=== PATIENT | male | born 1960 | race Caucasian/White ===

== ENCOUNTER → 2017-03-17 | Outpatient (CLI) | payer MEDICARE ==
[~2017-03-17] MED LIST: ACET325 PO; ARIP15 PO; ARIP30 PO; ASPI81CH PO; Ambien5 MG PO; CHOL10002; CLON1 PO; CLON2 PO; DIAZ10 PO; DOXE25 PO; Hair, Skin & N1 EACH PO; LAMO100 PO; LIDO700A20 TOP; LISI20 PO; LITH300C PO; Levitra20 MG PO; METAMUCIL660 GM PO; MIRT30 PO; NAPR220 PO; OLAN10 PO; QUET200 PO; QUET300; RISP1 PO; SAPHRIS5 MG SL; TAMS.4ER PO; TESTOSTERONE; TESTOSTERONE5 G1 TOP; Zyprexa Zydis15 MG PO
== END ==
LOC: LAB 13:17
DX: R32 Unspecified urinary incontinence (principal)
CPT/HCPCS: 87086

== ENCOUNTER 2017-08-11 13:57 | Emergency (ER) | END 2017-08-11 15:23 | disposition home or self-care (01) ==

== ENCOUNTER 2017-08-12 06:05 | Emergency (ER) | payer MEDICARE ==
[~2017-08-12] VITALS: Ht 205.7 cm; Wt 104.3 kg
[2017-08-12] MEDS ORDERED: ARIP30 PO (06:36)
[2017-08-12] MEDS ORDERED: LITH300C PO (06:36)
[2017-08-12] MEDS ORDERED: CLON2 PO (06:36)
[2017-08-12] MEDS ORDERED: LISI20 PO (06:37)
[2017-08-12] MEDS ORDERED: TAMS.4ER PO (06:37)
[2017-08-12] MEDS ORDERED: Hair, Skin & N1 EACH PO (06:37)
[2017-08-12] MEDS ORDERED: CHOL10002 (06:37)
[2017-08-12] MEDS ORDERED: MIRT30 PO (06:38)
[2017-08-12] MEDS ORDERED: NAPR220 PO (06:38)
[2017-08-12] MEDS ORDERED: ASPI81CH PO (06:38)
[2017-08-12] MEDS ORDERED: TESTOSTERONE (06:39)
[2017-08-12] MEDS ORDERED: Levitra20 MG PO (06:39)
[2017-08-12] MEDS ORDERED: RISP1 PO (06:39)
[2017-08-12] MEDS ORDERED: Ambien5 MG PO (07:29)
== END 2017-08-12 07:38 | disposition home or self-care (01) ==
LOC: ER 06:05
DX: G47.00 Insomnia, unspecified (principal); F31.9 Bipolar disorder, unspecified; F17.210 Nicotine dependence, cigarettes, uncomplicated; Z79.899 Other long term (current) drug therapy; Z79.82 Long term (current) use of aspirin; Z79.2 Long term (current) use of antibiotics
CPT/HCPCS: 99283

== ENCOUNTER 2017-08-12 21:52 | Emergency (ER) | payer MEDICARE ==
[~2017-08-12] VITALS: Ht 182.9 cm; Wt 104.3 kg
[~2017-08-12 21:52] MED LIST changes: -ACET325 PO; -ARIP15 PO; -CLON1 PO; -DIAZ10 PO; -DOXE25 PO; -LAMO100 PO; -LIDO700A20 TOP; -METAMUCIL660 GM PO; -OLAN10 PO; -QUET200 PO; -QUET300; -SAPHRIS5 MG SL; -TESTOSTERONE5 G1 TOP; -Zyprexa Zydis15 MG PO
== END 2017-08-12 23:54 | disposition left against medical advice (07) ==
LOC: ER 21:52
DX: Z53.21 Procedure and treatment not carried out due to patient leaving prior to being seen by health care provider (principal)

== ENCOUNTER 2017-08-26 04:52 | Observation (INO) | payer MEDICARE ==
[~2017-08-26] VITALS: Ht 182.9 cm; Wt 100.7 kg
[2017-08-26] MEDS ORDERED: SAPHRIS5 MG SL (05:05)
[2017-08-26] MEDS ORDERED: DIAZ10 PO (05:05)
== END 2017-08-26 06:35 | disposition home or self-care (01) ==
LOC: ER 04:52 → EOR 04:53
DX: R45.850 Homicidal ideations (principal); F41.9 Anxiety disorder, unspecified; F17.200 Nicotine dependence, unspecified, uncomplicated; Z79.899 Other long term (current) drug therapy; Z79.82 Long term (current) use of aspirin
CPT/HCPCS: 99285; G0378

== ENCOUNTER 2017-08-26 07:43 | Emergency (ER) | payer MEDICARE ==
[~2017-08-26] VITALS: Ht 182.9 cm; Wt 99.8 kg
[~2017-08-26 07:43] MED LIST changes: +DIAZ10 PO; +SAPHRIS5 MG SL
== END 2017-08-26 08:34 | disposition home or self-care (01) ==
LOC: ER 07:43
DX: F31.9 Bipolar disorder, unspecified (principal); F41.9 Anxiety disorder, unspecified; F17.210 Nicotine dependence, cigarettes, uncomplicated; Z79.899 Other long term (current) drug therapy; Z79.82 Long term (current) use of aspirin
CPT/HCPCS: 99283

== ENCOUNTER 2017-09-13 22:07 | Emergency (ER) | payer MEDICARE ==
[~2017-09-13] VITALS: Ht 182.9 cm; Wt 95.7 kg
== END 2017-09-14 00:01 | disposition home or self-care (01) ==
LOC: ER 22:07
DX: Z63.0 Problems in relationship with spouse or partner (principal); F31.9 Bipolar disorder, unspecified; Z79.899 Other long term (current) drug therapy; F17.200 Nicotine dependence, unspecified, uncomplicated; Z79.82 Long term (current) use of aspirin
CPT/HCPCS: 99283

== ENCOUNTER 2017-12-18 11:41 | Emergency (ER) | payer MEDICARE ==
[~2017-12-18] VITALS: Ht 188 cm; Wt 99.8 kg
[2017-12-18] MEDS ORDERED: LAMO100 PO (11:56)
[2017-12-18] MEDS ORDERED: ARIP15 PO (11:56)
[2017-12-18] MEDS ORDERED: QUET200 PO (11:57)
[2017-12-18 12:01] LABS: BASOPHILS ABSOLUTE AUTO 0.04 K/mm3 (0.00-0.23); BASOPHILS PERCENT AUTO 1 % (0-2); EOSINOPHILS ABSOLUTE AUTO 0.28 K/mm3 (0.00-0.68); EOSINOPHILS PERCENT AUTO 3 % (0-6); Hematocrit 43.5 % (37.0-53.0); Hemoglobin 14.4 g/dL (13.5-17.5); IMMATURE GRAN ABSOLUTE AUTO 0.06 K/mm3 (0.00-0.10); IMMATURE GRAN PERCENT AUTO 1 % (0-1); LYMPHOCYTES ABSOLUTE AUTO 1.63 K/mm3 (0.84-5.20); LYMPHOCYTES PERCENT AUTO 20 % (21-46); MONOCYTES ABSOLUTE AUTO 0.81 K/mm3 (0.16-1.47); MONOCYTES PERCENT AUTO 10 % (4-13); Mean Corpuscular HGB 30.4 pg (26.0-34.0); Mean Corpuscular HGB Conc 33.1 g/dL (31.5-36.5); Mean Corpuscular Volume 92 fL (80-100); Mean Platelet Volume 9.5 fL (9.1-12.4); NEUTROPHILS ABSOLUTE AUTO 5.48 K/mm3 (1.96-9.15); NEUTROPHILS PERCENT AUTO 66 % (41-73); Platelet Count 297 K/mm3 (150-400); RDW Coefficient Variation 12.8 % (11.7-14.2); RDW Standard Deviation 43.4 fL (35.1-46.3); Red Blood Cell Count 4.74 M/mm3 (4.30-5.90)
[2017-12-18 12:25] LABS: Alanine Aminotransfer (ALT/SGP 35 U/L (12-78); Albumin, Blood 4.1 g/dL (3.4-5.0); Albumin/Globulin Ratio 1.2 (0.8-1.8); Alk Phos 78 U/L (50-136); Anion Gap 6 mmol/L (6-16); Aspartate Aminotrans (AST/SGOT 31 U/L (12-37); Bilirubin, Total 0.2 mg/dL (0.1-1.0); Blood Urea Nitrogen 22 mg/dL (8-24); Bun/Creatinine Ratio 22.1 (12.0-20.0); CO2, Blood 26 mmol/L (21-32); Calcium, Blood 9.7 mg/dL (8.5-10.1); Chloride, Blood 102 mmol/L (98-108); Globulin, Blood 3.4 g/dL (2.2-4.0); Glomerular Filtration Rate >60 (60-); Glucose, Blood 100 mg/dL (70-99); Potassium, Blood 4.7 mmol/L (3.5-5.5); Sodium, Blood 134 mmol/L (136-145); Total Protein, Blood 7.5 g/dL (6.4-8.2); Troponin I <0.015 ng/mL (0.000-0.040)
== END 2017-12-18 13:00 | disposition home or self-care (01) ==
LOC: ER 11:41
PROVIDERS: Emergency Medicine
DX: R07.89 Other chest pain (principal); T78.8XXA Other adverse effects, not elsewhere classified, initial encounter; Z79.899 Other long term (current) drug therapy; Z79.82 Long term (current) use of aspirin; F31.9 Bipolar disorder, unspecified
CPT/HCPCS: 71046; 80053; 84484; 85025; 93005; 93010

== ENCOUNTER 2018-03-08 19:39 | Observation (INO) | payer MEDICARE ==
[~2018-03-08] VITALS: Ht 188 cm; Wt 100.9 kg
[~2018-03-08 19:39] MED LIST changes: +ACET325 PO; +ARIP15 PO; +CLON1 PO; +DOXE25 PO; +LAMO100 PO; +LIDO700A20 TOP; +METAMUCIL660 GM PO; +OLAN10 PO; +QUET200 PO; +QUET300; +TESTOSTERONE5 G1 TOP; +Zyprexa Zydis15 MG PO
[2018-03-08 20:17] LABS: BASOPHILS ABSOLUTE AUTO 0.03 K/mm3 (0.00-0.23); BASOPHILS PERCENT AUTO 0 % (0-2); EOSINOPHILS ABSOLUTE AUTO 0.43 K/mm3 (0.00-0.68); EOSINOPHILS PERCENT AUTO 5 % (0-6); Hematocrit 37.3 % (37.0-53.0); Hemoglobin 11.4 g/dL (13.5-17.5); IMMATURE GRAN ABSOLUTE AUTO 0.05 K/mm3 (0.00-0.10); IMMATURE GRAN PERCENT AUTO 1 % (0-1); LYMPHOCYTES ABSOLUTE AUTO 2.26 K/mm3 (0.84-5.20); LYMPHOCYTES PERCENT AUTO 25 % (21-46); MONOCYTES ABSOLUTE AUTO 0.67 K/mm3 (0.16-1.47); MONOCYTES PERCENT AUTO 7 % (4-13); Mean Corpuscular HGB 28.3 pg (26.0-34.0); Mean Corpuscular HGB Conc 30.6 g/dL (31.5-36.5); Mean Corpuscular Volume 93 fL (80-100); Mean Platelet Volume 10.2 fL (9.1-12.4); NEUTROPHILS ABSOLUTE AUTO 5.75 K/mm3 (1.96-9.15); NEUTROPHILS PERCENT AUTO 63 % (41-73); Platelet Count 312 K/mm3 (150-400); RDW Coefficient Variation 13.6 % (11.7-14.2); RDW Standard Deviation 46.4 fL (35.1-46.3); Red Blood Cell Count 4.03 M/mm3 (4.30-5.90); White Blood Cell Count 9.19 K/mm3 (4.00-11.30)
[2018-03-08 20:34] LABS: Acetaminophen, Random <2.0 ug/mL (10.0-30.0); Alanine Aminotransfer (ALT/SGP 31 U/L (12-78); Albumin, Blood 3.5 g/dL (3.4-5.0); Albumin/Globulin Ratio 1.1 (0.8-1.8); Alk Phos 79 U/L (50-136); Anion Gap 7 mmol/L (6-16); Aspartate Aminotrans (AST/SGOT 20 U/L (12-37); Bilirubin, Total 0.1 mg/dL (0.1-1.0); Blood Urea Nitrogen 24 mg/dL (8-24); Bun/Creatinine Ratio 27.8 (12.0-20.0); CO2, Blood 26 mmol/L (21-32); Calcium, Blood 9.3 mg/dL (8.5-10.1); Chloride, Blood 107 mmol/L (98-108); Creatinine, Blood 0.86 mg/dL (0.60-1.20); Ethanol (Alcohol), Blood, Med 5 mg/dL; Globulin, Blood 3.3 g/dL (2.2-4.0); Glomerular Filtration Rate >60 (60-); Glucose, Blood 100 mg/dL (70-99); Potassium, Blood 4.1 mmol/L (3.5-5.5); Salicylate 2.3 mg/dL (2.8-20.0); Sodium, Blood 140 mmol/L (136-145); Total Protein, Blood 6.8 g/dL (6.4-8.2)
[2018-03-08 20:38] LABS: Thyroid Stimulating Hormone 0.489 uIU/mL (0.360-4.800)
[2018-03-08 21:43] LABS: Source, Urine Clean Catch
[2018-03-08 21:46] LABS: Appearance, Urine Clear (Clear); Bilirubin, Urine Neg (Neg); Blood, Urine Neg (Neg); Color, Urine Yellow (P-Yellow); Glucose Qualitative, Urine Neg (Neg); Ketones, Urine Neg (Neg); Leukocyte Esterase, Urine Neg (Neg); Nitrite, Urine Neg (Neg); Protein, Urine Neg (Neg); Urobilinogen, Urine NORM (Normal)
[2018-03-08 22:00] LABS: U Amphetamine Screen Not Detected; U Barbituate Screen Not Detected; U Benzodiazapine Screen Not Detected; U Buprenorphine Screen Not Detected; U Cannabinoids Screen Not Detected; U Cocaine Screen Not Detected; U Methadone Screen Not Detected; U Methamphetamine Screen Not Detected; U Opiates Screen Not Detected; U Oxycodone Screen Not Detected; U Phencyclidine Screen Not Detected
[2018-03-08 22:01] LABS: U Propoxyphene Screen Not Detected
[2018-03-09 03:43] LABS: Hematocrit 36.1 % (37.0-53.0); Hemoglobin 11.2 g/dL (13.5-17.5); Mean Corpuscular HGB 28.9 pg (26.0-34.0); Mean Corpuscular Volume 93 fL (80-100); Mean Platelet Volume 9.7 fL (9.1-12.4); Platelet Count 306 K/mm3 (150-400); RDW Coefficient Variation 13.8 % (11.7-14.2); Red Blood Cell Count 3.87 M/mm3 (4.30-5.90); White Blood Cell Count 6.99 K/mm3 (4.00-11.30)
[2018-03-09 04:02] LABS: Alanine Aminotransfer (ALT/SGP 28 U/L (12-78); Albumin, Blood 2.9 g/dL (3.4-5.0); Alk Phos 68 U/L (50-136); Anion Gap 6 mmol/L (6-16); Aspartate Aminotrans (AST/SGOT 19 U/L (12-37); Bilirubin, Total 0.3 mg/dL (0.1-1.0); Blood Urea Nitrogen 17 mg/dL (8-24); Bun/Creatinine Ratio 24.7 (12.0-20.0); CO2, Blood 24 mmol/L (21-32); Chloride, Blood 114 mmol/L (98-108); Creatinine, Blood 0.69 mg/dL (0.60-1.20); Glomerular Filtration Rate >60 (60-); Glucose, Blood 93 mg/dL (70-99); Sodium, Blood 144 mmol/L (136-145); Total Protein, Blood 5.9 g/dL (6.4-8.2)
[2018-03-09 11:37] LABS: Lithium 0.44 mmol/L (0.60-1.20)
== END 2018-03-10 22:50 | disposition home or self-care (01) ==
LOC: ER 19:39 → ERHOLD 19:40 → ICUW 21:30 → ER 21:30 → ERHOLD 22:53 → ICUW 22:53 → ERHOLD 03-10 13:23
PROVIDERS: Emergency Medicine; Nurse Practitioner Acute Care; Nurse Practitioner Psychiatric/Mental Health
DX: T42.4X2A Poisoning by benzodiazepines, intentional self-harm, initial encounter (principal); G92 Toxic encephalopathy; F31.9 Bipolar disorder, unspecified; D64.9 Anemia, unspecified; M54.9 Dorsalgia, unspecified; G89.29 Other chronic pain; I10 Essential (primary) hypertension; K21.9 Gastro-esophageal reflux disease without esophagitis; F17.210 Nicotine dependence, cigarettes, uncomplicated; Z79.899 Other long term (current) drug therapy
CPT/HCPCS: 36415; 80053; 80178; 81003; 84443; 85025; 85027; 93005; 93010; G0480; J1650; J2310; J7030

== ENCOUNTER 2018-03-22 02:58 | Emergency (ER) | payer MEDICARE ==
[2018-03-23] MEDS ORDERED: TRAZ50 PO (00:25)
== END 2018-03-22 04:10 | disposition left against medical advice (07) ==
LOC: ER 02:58
DX: Z53.21 Procedure and treatment not carried out due to patient leaving prior to being seen by health care provider (principal)

== ENCOUNTER 2018-03-22 16:41 | Emergency (ER) | payer MEDICARE ==
[~2018-03-22] VITALS: Ht 182.9 cm; Wt 99.8 kg
[2018-03-23] MEDS ORDERED: TRAZ50 PO (00:25)
== END 2018-03-22 20:23 | disposition left against medical advice (07) ==
LOC: ER 16:41
DX: Z53.21 Procedure and treatment not carried out due to patient leaving prior to being seen by health care provider (principal)

== ENCOUNTER 2018-03-22 23:43 | Emergency (ER) | payer MEDICARE ==
[~2018-03-22] VITALS: Ht 182.9 cm; Wt 99.8 kg
[2018-03-23] MEDS ORDERED: TRAZ50 PO (00:25)
== END 2018-03-23 02:23 | disposition left against medical advice (07) ==
LOC: ER 23:43
DX: Z53.21 Procedure and treatment not carried out due to patient leaving prior to being seen by health care provider (principal)

== ENCOUNTER 2018-03-23 02:53 | Emergency (ER) | payer MEDICARE ==
[~2018-03-23] VITALS: Ht 182.9 cm; Wt 99.8 kg
[~2018-03-23 02:53] MED LIST changes: +TRAZ50 PO
== END 2018-03-23 04:38 | disposition home or self-care (01) ==
LOC: ER 02:53
DX: G47.00 Insomnia, unspecified (principal); Z79.899 Other long term (current) drug therapy; F31.9 Bipolar disorder, unspecified; I10 Essential (primary) hypertension; D64.9 Anemia, unspecified; F17.210 Nicotine dependence, cigarettes, uncomplicated
CPT/HCPCS: 99283

== ENCOUNTER 2018-04-30 14:37 | Emergency (ER) | payer SELFPAY ==
[~2018-04-30] VITALS: Ht 185.4 cm; Wt 97.5 kg
[2018-04-30] MEDS ORDERED: LITH300C PO (15:58)
[2018-04-30] MEDS ORDERED: Cyclobenzaprine5 MG PO (15:58)
[2018-04-30] MEDS ORDERED: IBUP800 PO (16:05)
[2018-04-30 16:35] LABS: Calcium, Ionized (POC) 1.18 mmol/L (1.10-1.46); Chloride (POC) 106 mmol/L (98-108); Creatinine (POC) 0.6 mg/dL (0.8-1.3); Glucose (ISTAT POC) 113 mg/dL (70-99); Hemoglobin (POC) 12.9 g/dL (13.5-17.5); Potassium (POC) 3.9 mmol/L (3.5-5.5); Sodium (POC) 139 mmol/L (135-148); Total CO2 (POC) 22 mmol/L (21-32)
== END 2018-04-30 16:10 | disposition home or self-care (01) ==
LOC: ER 14:37
PROVIDERS: Physician Assistant
DX: S16.1XXA Strain of muscle, fascia and tendon at neck level, initial encounter (principal); Z76.0 Encounter for issue of repeat prescription; X58.XXXA Exposure to other specified factors, initial encounter; Z79.899 Other long term (current) drug therapy; F31.9 Bipolar disorder, unspecified; I10 Essential (primary) hypertension; D64.9 Anemia, unspecified; F17.210 Nicotine dependence, cigarettes, uncomplicated
CPT/HCPCS: 36415; 73010; 80047; 85014; 99283-25

== ENCOUNTER 2018-05-03 13:11 | Emergency (ER) | payer MEDICARE ==
[~2018-05-03 13:11] MED LIST changes: +Cyclobenzaprine5 MG PO; +IBUP800 PO
== END 2018-05-03 14:36 | disposition left against medical advice (07) ==
LOC: ER 13:11
DX: Z53.21 Procedure and treatment not carried out due to patient leaving prior to being seen by health care provider (principal); M54.9 Dorsalgia, unspecified

== ENCOUNTER 2018-05-14 12:05 | Observation (INO) | payer MEDICARE ==
[~2018-05-14] VITALS: Ht 182.9 cm; Wt 99.8 kg
[2018-05-14 13:41] LABS: BASOPHILS ABSOLUTE AUTO 0.03 K/mm3 (0.00-0.23); BASOPHILS PERCENT AUTO 0 % (0-2); EOSINOPHILS ABSOLUTE AUTO 0.11 K/mm3 (0.00-0.68); EOSINOPHILS PERCENT AUTO 1 % (0-6); Hematocrit 41.1 % (37.0-53.0); Hemoglobin 12.6 g/dL (13.5-17.5); IMMATURE GRAN ABSOLUTE AUTO 0.05 K/mm3 (0.00-0.10); IMMATURE GRAN PERCENT AUTO 0 % (0-1); LYMPHOCYTES ABSOLUTE AUTO 1.41 K/mm3 (0.84-5.20); LYMPHOCYTES PERCENT AUTO 9 % (21-46); MONOCYTES ABSOLUTE AUTO 0.79 K/mm3 (0.16-1.47); MONOCYTES PERCENT AUTO 5 % (4-13); Mean Corpuscular HGB Conc 30.7 g/dL (31.5-36.5); Mean Corpuscular Volume 88 fL (80-100); Mean Platelet Volume 9.7 fL (9.1-12.4); NEUTROPHILS ABSOLUTE AUTO 13.29 K/mm3 (1.96-9.15); NEUTROPHILS PERCENT AUTO 85 % (41-73); Platelet Count 325 K/mm3 (150-400); RDW Standard Deviation 45.1 fL (35.1-46.3); Red Blood Cell Count 4.66 M/mm3 (4.30-5.90); White Blood Cell Count 15.68 K/mm3 (4.00-11.30)
[2018-05-14 14:17] LABS: Alanine Aminotransfer (ALT/SGP 23 U/L (12-78); Albumin, Blood 3.5 g/dL (3.4-5.0); Albumin/Globulin Ratio 0.9 (0.8-1.8); Alk Phos 103 U/L (50-136); Anion Gap 6 mmol/L (6-16); Aspartate Aminotrans (AST/SGOT 15 U/L (12-37); Bilirubin, Total 0.5 mg/dL (0.1-1.0); Blood Urea Nitrogen 14 mg/dL (8-24); Bun/Creatinine Ratio 20.9 (12.0-20.0); CO2, Blood 26 mmol/L (21-32); Calcium, Blood 9.4 mg/dL (8.5-10.1); Chloride, Blood 104 mmol/L (98-108); Creatinine, Blood 0.67 mg/dL (0.60-1.20); Ethanol (Alcohol), Blood, Med <3 mg/dL; Globulin, Blood 3.9 g/dL (2.2-4.0); Glomerular Filtration Rate >60 (60-); Glucose, Blood 92 mg/dL (70-99); Potassium, Blood 4.4 mmol/L (3.5-5.5); Salicylate 2.6 mg/dL (2.8-20.0); Sodium, Blood 136 mmol/L (136-145); Thyroxine (T4) 8.8 ug/dL (4.5-12.1); Total Protein, Blood 7.4 g/dL (6.4-8.2)
[2018-05-14 14:22] LABS: Thyroid Stimulating Hormone 0.329 uIU/mL (0.360-4.800)
[2018-05-14 14:27] LABS: Acetaminophen, Random <2.0 ug/mL (10.0-30.0)
[2018-05-14 19:16] LABS: Lithium <0.20 mmol/L (0.60-1.20)
[2018-05-15 10:47] LABS: U Amphetamine Screen Not Detected; U Barbituate Screen Not Detected; U Benzodiazapine Screen Not Detected; U Buprenorphine Screen Not Detected; U Cannabinoids Screen DETECTED; U Cocaine Screen Not Detected; U Methadone Screen Not Detected; U Methamphetamine Screen Not Detected; U Opiates Screen Not Detected; U Oxycodone Screen Not Detected; U Phencyclidine Screen Not Detected; U Propoxyphene Screen Not Detected
== END 2018-05-17 21:50 | disposition home or self-care (01) ==
LOC: ER 12:05 → EOR 12:06
PROVIDERS: Emergency Medicine; ADMIT Emergency Medicine
DX: F31.5 Bipolar disorder, current episode depressed, severe, with psychotic features (principal); F15.10 Other stimulant abuse, uncomplicated; F17.210 Nicotine dependence, cigarettes, uncomplicated; Z79.899 Other long term (current) drug therapy
CPT/HCPCS: 36415; 80053; 80178; 84436; 84443; 85025; 99285-25; G0378; G0480; Q3014

== ENCOUNTER 2018-07-21 19:20 | Observation (INO) | payer MEDICARE ==
[~2018-07-21] VITALS: Ht 182.9 cm; Wt 98.1 kg
[~2018-07-21 19:20] MED LIST changes: -TRAZ50 PO; +Trazodone HCl300 MG PO
[2018-07-21] MEDS ORDERED: CLON1 PO (19:37)
[2018-07-21] MEDS ORDERED: VITAMIN D250000 UNIT PO (21:14)
[2018-07-21] MEDS ORDERED: HYDPAM25 PO (21:15)
[2018-07-21] MEDS ORDERED: IBUP800 PO (21:16)
[2018-07-21] MEDS ORDERED: Lamictal25 MG PO (21:16)
[2018-07-21] MEDS ORDERED: LAMO100 PO (21:17)
[2018-07-21] MEDS ORDERED: OLANZAPINE15 MG PO (21:18)
[2018-07-21 22:43] LABS: Hematocrit 37.7 % (37.0-53.0); Hemoglobin 12.2 g/dL (13.5-17.5); White Blood Cell Count 10.76 K/mm3 (4.00-11.30)
[2018-07-21 22:44] LABS: BASOPHILS ABSOLUTE AUTO 0.02 K/mm3 (0.00-0.23); BASOPHILS PERCENT AUTO 0 % (0-2); EOSINOPHILS ABSOLUTE AUTO 0.09 K/mm3 (0.00-0.68); EOSINOPHILS PERCENT AUTO 1 % (0-6); IMMATURE GRAN ABSOLUTE AUTO 0.05 K/mm3 (0.00-0.10); IMMATURE GRAN PERCENT AUTO 1 % (0-1); LYMPHOCYTES PERCENT AUTO 12 % (21-46); MONOCYTES ABSOLUTE AUTO 0.85 K/mm3 (0.16-1.47); MONOCYTES PERCENT AUTO 8 % (4-13); Mean Corpuscular HGB 27.7 pg (26.0-34.0); Mean Corpuscular HGB Conc 32.4 g/dL (31.5-36.5); Mean Corpuscular Volume 86 fL (80-100); Mean Platelet Volume 9.8 fL (9.1-12.4); NEUTROPHILS ABSOLUTE AUTO 8.45 K/mm3 (1.96-9.15); NEUTROPHILS PERCENT AUTO 79 % (41-73); Platelet Count 369 K/mm3 (150-400); RDW Coefficient Variation 14.6 % (11.7-14.2)
[2018-07-21 23:34] LABS: Albumin, Blood 3.3 g/dL (3.4-5.0); Albumin/Globulin Ratio 0.9 (0.8-1.8); Alk Phos 101 U/L (50-136); Anion Gap 10 mmol/L (6-16); Aspartate Aminotrans (AST/SGOT 48 U/L (12-37); Bilirubin, Total 0.4 mg/dL (0.1-1.0); Blood Urea Nitrogen 19 mg/dL (8-24); Bun/Creatinine Ratio 23.5 (12.0-20.0); CO2, Blood 21 mmol/L (21-32); Calcium, Blood 8.7 mg/dL (8.5-10.1); Chloride, Blood 106 mmol/L (98-108); Creatinine, Blood 0.81 mg/dL (0.60-1.20); Globulin, Blood 3.7 g/dL (2.2-4.0); Glomerular Filtration Rate >60 (60-); Glucose, Blood 122 mg/dL (70-99); Potassium, Blood 3.6 mmol/L (3.5-5.5); Sodium, Blood 137 mmol/L (136-145)
[2018-07-21 23:35] LABS: Acetaminophen, Random <2.0 ug/mL (10.0-30.0); Alanine Aminotransfer (ALT/SGP 26 U/L (12-78); Ethanol (Alcohol), Blood, Med <3 mg/dL; Salicylate 3.2 mg/dL (2.8-20.0); Thyroid Stimulating Hormone 0.374 uIU/mL (0.360-4.800)
[2018-07-22 04:18] LABS: Hematocrit 37.2 % (37.0-53.0); Hemoglobin 11.9 g/dL (13.5-17.5); Mean Corpuscular HGB 27.5 pg (26.0-34.0); Mean Corpuscular Volume 86 fL (80-100); Mean Platelet Volume 9.7 fL (9.1-12.4); Platelet Count 332 K/mm3 (150-400); RDW Coefficient Variation 14.9 % (11.7-14.2); RDW Standard Deviation 46.7 fL (35.1-46.3); Red Blood Cell Count 4.33 M/mm3 (4.30-5.90); White Blood Cell Count 7.73 K/mm3 (4.00-11.30)
[2018-07-22 04:36] LABS: Alanine Aminotransfer (ALT/SGP 22 U/L (12-78); Albumin, Blood 3.1 g/dL (3.4-5.0); Albumin/Globulin Ratio 0.9 (0.8-1.8); Alk Phos 93 U/L (50-136); Anion Gap 6 mmol/L (6-16); Aspartate Aminotrans (AST/SGOT 35 U/L (12-37); Bilirubin, Total 0.5 mg/dL (0.1-1.0); Blood Urea Nitrogen 14 mg/dL (8-24); Bun/Creatinine Ratio 18.1 (12.0-20.0); CO2, Blood 24 mmol/L (21-32); Calcium, Blood 8.6 mg/dL (8.5-10.1); Chloride, Blood 110 mmol/L (98-108); Creatinine, Blood 0.77 mg/dL (0.60-1.20); Globulin, Blood 3.4 g/dL (2.2-4.0); Glomerular Filtration Rate >60 (60-); Glucose, Blood 93 mg/dL (70-99); Potassium, Blood 3.6 mmol/L (3.5-5.5); Sodium, Blood 140 mmol/L (136-145); Total Protein, Blood 6.5 g/dL (6.4-8.2)
[2018-07-22 05:55] LABS: Source, Urine Clean Catch
[2018-07-22 05:57] LABS: Bilirubin, Urine Neg (Neg); Blood, Urine Neg (Neg); Glucose Qualitative, Urine Neg (Neg); Ketones, Urine 3+ (Neg); Leukocyte Esterase, Urine Neg (Neg); Nitrite, Urine Neg (Neg); Protein, Urine 2+ (Neg); Specific Gravity, Urine 1.025 (1.003-1.022); Urobilinogen, Urine NORM (Normal)
--- NOTE | 2018-07-22 06:02 | NUR ---
SHIFT SUMMARY. PT SLEPT VERY HARD FOR APROX 3 HOURS AFTER HE WAS ADMITTED. PT WOKE UP VERY ALERT AND ORIENTED. PT WAS ABLE TO STATE HE WAS IN THE HOSPTIAL IN [place]. PT'S SPEECH IS VERY CLEAR. PT WAS ABLE TO REMEMBER HIS SISTER'S PHONE NUMBER FROM [place]. PT DOES NOT REMEMBER COMING IN OR WHAT BROUGHT HIM HERE. PT HAS BEEN IN NSR ALL SHIFT. NO CARDIAC EVENTS, PT'S VS HAVE BEEN STABLE. PT DENIES. ANY CHEST PAIN/PRESSURE, N/V OR SOB. PT DOES C/O OF SEVERE NECK PAIN DUE TO "SLEEPING ON THE STREETS." THIS RN SPOKE W/PT'S SISTER, PT'S SISTER WANTS TO COME TO [place] FROM [place] TO HELP HER BROTHER BUT IS AFRAID THAT HE WILL BE D/C'D BY THE TIME SHE GETS HERE AND SHE WILL NOT BE ABLE TO FIND HIM DUE TO HIS HOMELESS STATUS AND MENTAL HEALTH ISSUES. A SS CONSULT WILL BE PLACED. CALL LIGHT IN REACH, BED IS LOCKED AND LOW W/BED ALARM ON, WILL CONTINUE TO MONITOR UNTIL REPORT IS GIVEN TO ONCOMING RN.
[2018-07-22 06:10] LABS: U Amphetamine Screen Not Detected; U Barbituate Screen Not Detected; U Benzodiazapine Screen Not Detected; U Buprenorphine Screen Not Detected; U Cannabinoids Screen DETECTED; U Cocaine Screen Not Detected; U Methadone Screen Not Detected; U Methamphetamine Screen Not Detected; U Opiates Screen Not Detected; U Oxycodone Screen Not Detected; U Phencyclidine Screen Not Detected; U Propoxyphene Screen Not Detected
[2018-07-22 06:21] LABS: Appearance, Urine Clear (Clear); Bacteria Rare /hpf; Color, Urine Yellow (P-Yellow); Mucus Light (0-Heavy); Red Blood Cells, Urine Not Seen /hpf (0-2); Squamous Epithelial Cells Rare /hpf (Few); White Blood Cells, Urine Rare /hpf (0-5)
[2018-07-22 06:22] LABS: Amorphous Light (0-Heavy)
--- NOTE | 2018-07-22 08:22 | NUR ---
ASSUMED CARE OF PT AT APPROXIMATELY 0745. PT ALERT AND ORIENTED. VS STABLE. PT DENIES ANY PAIN. PT REQUESTING AMA FORM AND WANTS TO LEAVE. PT ENCOURAGED TO STAY AND INFORMED OF RISKS OF LEAVING. DR. DE LEON NOTIFIED. ALL PT BELONGINGS RETURNED TO PT. PT SIGNED AMA FORM. CHARGE NURSE NOTIFIED.
[2018-07-23] MEDS ORDERED: OLAN10 PO (17:55)
== END 2018-07-22 08:21 | disposition left against medical advice (07) ==
LOC: ER 19:20 → PCU 19:21
PROVIDERS: Emergency Medicine; ADMIT Internal Medicine
DX: R55 Syncope and collapse (principal); G93.40 Encephalopathy, unspecified; E86.0 Dehydration; I10 Essential (primary) hypertension; F31.9 Bipolar disorder, unspecified; D64.9 Anemia, unspecified; K21.9 Gastro-esophageal reflux disease without esophagitis; F17.200 Nicotine dependence, unspecified, uncomplicated; Z79.899 Other long term (current) drug therapy
CPT/HCPCS: 36415; 70450; 71046; 80053; 81001; 83735; 85027; 93005; 93010; 96361; 96374; 96375; 99285-25; J1650; J2310; J7030

== ENCOUNTER 2018-07-23 14:59 | Emergency (ER) | payer MEDICARE ==
[~2018-07-23] VITALS: Ht 182.9 cm; Wt 102.1 kg
[~2018-07-23 14:59] MED LIST changes: +HYDPAM25 PO; +OLANZAPINE15 MG PO; -Trazodone HCl300 MG PO; +VITAMIN D250000 UNIT PO
[2018-07-23 15:44] LABS: BASOPHILS ABSOLUTE AUTO 0.02 K/mm3 (0.00-0.23); BASOPHILS PERCENT AUTO 0 % (0-2); EOSINOPHILS ABSOLUTE AUTO 0.16 K/mm3 (0.00-0.68); EOSINOPHILS PERCENT AUTO 3 % (0-6); Hematocrit 35.2 % (37.0-53.0); Hemoglobin 11.1 g/dL (13.5-17.5); IMMATURE GRAN ABSOLUTE AUTO 0.02 K/mm3 (0.00-0.10); IMMATURE GRAN PERCENT AUTO 0 % (0-1); LYMPHOCYTES ABSOLUTE AUTO 1.57 K/mm3 (0.84-5.20); LYMPHOCYTES PERCENT AUTO 30 % (21-46); MONOCYTES ABSOLUTE AUTO 0.57 K/mm3 (0.16-1.47); MONOCYTES PERCENT AUTO 11 % (4-13); Mean Corpuscular HGB 27.3 pg (26.0-34.0); Mean Corpuscular HGB Conc 31.5 g/dL (31.5-36.5); Mean Corpuscular Volume 87 fL (80-100); Mean Platelet Volume 9.4 fL (9.1-12.4); NEUTROPHILS ABSOLUTE AUTO 2.95 K/mm3 (1.96-9.15); NEUTROPHILS PERCENT AUTO 56 % (41-73); Platelet Count 328 K/mm3 (150-400); RDW Coefficient Variation 14.8 % (11.7-14.2); RDW Standard Deviation 47.5 fL (35.1-46.3); Red Blood Cell Count 4.06 M/mm3 (4.30-5.90); White Blood Cell Count 5.29 K/mm3 (4.00-11.30)
[2018-07-23 16:03] LABS: Alanine Aminotransfer (ALT/SGP 25 U/L (12-78); Albumin, Blood 3.2 g/dL (3.4-5.0); Albumin/Globulin Ratio 0.9 (0.8-1.8); Alk Phos 92 U/L (50-136); Anion Gap 6 mmol/L (6-16); Aspartate Aminotrans (AST/SGOT 31 U/L (12-37); Bilirubin, Total 0.2 mg/dL (0.1-1.0); Blood Urea Nitrogen 12 mg/dL (8-24); Bun/Creatinine Ratio 18.1 (12.0-20.0); CO2, Blood 26 mmol/L (21-32); Calcium, Blood 8.8 mg/dL (8.5-10.1); Chloride, Blood 109 mmol/L (98-108); Creatinine, Blood 0.66 mg/dL (0.60-1.20); Globulin, Blood 3.6 g/dL (2.2-4.0); Glomerular Filtration Rate >60 (60-); Glucose, Blood 105 mg/dL (70-99); Potassium, Blood 3.8 mmol/L (3.5-5.5); Sodium, Blood 141 mmol/L (136-145); Total Protein, Blood 6.8 g/dL (6.4-8.2)
[2018-07-23 16:41] LABS: Source, Urine Clean Catch
[2018-07-23 16:47] LABS: Bilirubin, Urine Neg (Neg); Blood, Urine Neg (Neg); Glucose Qualitative, Urine Neg (Neg); Ketones, Urine Neg (Neg); Leukocyte Esterase, Urine 1+ (Neg); Nitrite, Urine Neg (Neg); Protein, Urine Neg (Neg); Specific Gravity, Urine 1.015 (1.003-1.022); Urobilinogen, Urine 1+ (Normal)
[2018-07-23 16:54] LABS: Appearance, Urine Clear (Clear); Color, Urine Yellow (P-Yellow)
[2018-07-23 16:55] LABS: Red Blood Cells, Urine 0-2 /hpf (0-2)
[2018-07-23 16:56] LABS: Bacteria Few /hpf; Squamous Epithelial Cells Not Seen /hpf (Few)
[2018-07-23] MEDS ORDERED: OLANZAPINE15 MG PO (17:55)
[2018-07-23 19:41] LABS: U Amphetamine Screen Not Detected; U Barbituate Screen Not Detected; U Benzodiazapine Screen Not Detected; U Buprenorphine Screen Not Detected; U Cannabinoids Screen Not Detected; U Cocaine Screen Not Detected; U Methadone Screen Not Detected; U Methamphetamine Screen Not Detected; U Opiates Screen Not Detected; U Oxycodone Screen Not Detected; U Phencyclidine Screen Not Detected; U Propoxyphene Screen Not Detected
== END 2018-07-23 20:54 | disposition left against medical advice (07) ==
LOC: ER 14:59
PROVIDERS: Emergency Medicine; Physician Assistant
DX: R55 Syncope and collapse (principal); F31.9 Bipolar disorder, unspecified; M54.9 Dorsalgia, unspecified; G89.29 Other chronic pain; F17.210 Nicotine dependence, cigarettes, uncomplicated; Z79.899 Other long term (current) drug therapy
CPT/HCPCS: 36415; 80053; 81001; 84484; 85025; 87086; 93005; 93010; 99284-25; G0480

== ENCOUNTER 2018-07-24 08:24 | Emergency (ER) | payer MEDICARE ==
[~2018-07-24] VITALS: Ht 182.9 cm; Wt 99.8 kg
== END 2018-07-24 09:00 | disposition left against medical advice (07) ==
LOC: ER 08:24
DX: Z53.21 Procedure and treatment not carried out due to patient leaving prior to being seen by health care provider (principal); R42 Dizziness and giddiness

== ENCOUNTER 2018-07-24 10:21 | Emergency (ER) | payer MEDICARE | END 2018-07-24 11:40 | disposition left against medical advice (07) | LOC: ER 10:21 | DX: Z53.21 Procedure and treatment not carried out due to patient leaving prior to being seen by health care provider (principal) ==

== ENCOUNTER 2018-07-24 23:18 | Emergency (ER) | payer MEDICARE ==
[~2018-07-24] VITALS: Ht 182.9 cm; Wt 99.8 kg
[2018-07-26] MEDS ORDERED: Prinivil10 MG PO (14:10)
[2018-07-26] MEDS ORDERED: PROAIR RESPICL90 MCG INH (14:11)
[2018-07-26] MEDS ORDERED: Lamotrigine25 MG PO (14:13)
[2018-07-26] MEDS ORDERED: Trazodone HCl300 MG PO (14:31)
== END 2018-07-25 03:05 | disposition home or self-care (01) ==
LOC: ER 23:18
DX: R55 Syncope and collapse (principal); F31.9 Bipolar disorder, unspecified; I10 Essential (primary) hypertension; D64.9 Anemia, unspecified; F17.210 Nicotine dependence, cigarettes, uncomplicated; Z79.899 Other long term (current) drug therapy
CPT/HCPCS: 99284

== ENCOUNTER 2018-07-26 08:57 | Emergency (ER) | payer MEDICARE ==
[~2018-07-26] VITALS: Ht 182.9 cm; Wt 99.8 kg
[2018-07-26 09:52] LABS: BASOPHILS ABSOLUTE AUTO 0.03 K/mm3 (0.00-0.23); BASOPHILS PERCENT AUTO 1 % (0-2); EOSINOPHILS PERCENT AUTO 3 % (0-6); Hematocrit 40.6 % (37.0-53.0); Hemoglobin 12.6 g/dL (13.5-17.5); IMMATURE GRAN ABSOLUTE AUTO 0.04 K/mm3 (0.00-0.10); IMMATURE GRAN PERCENT AUTO 1 % (0-1); LYMPHOCYTES ABSOLUTE AUTO 1.64 K/mm3 (0.84-5.20); LYMPHOCYTES PERCENT AUTO 25 % (21-46); MONOCYTES ABSOLUTE AUTO 0.51 K/mm3 (0.16-1.47); MONOCYTES PERCENT AUTO 8 % (4-13); Mean Corpuscular HGB 27.2 pg (26.0-34.0); Mean Corpuscular Volume 88 fL (80-100); Mean Platelet Volume 9.5 fL (9.1-12.4); NEUTROPHILS PERCENT AUTO 63 % (41-73); Platelet Count 346 K/mm3 (150-400); RDW Coefficient Variation 14.7 % (11.7-14.2); RDW Standard Deviation 47.3 fL (35.1-46.3); Red Blood Cell Count 4.64 M/mm3 (4.30-5.90); White Blood Cell Count 6.52 K/mm3 (4.00-11.30)
[2018-07-26 10:21] LABS: Acetaminophen, Random <2.0 ug/mL (10.0-30.0); Alanine Aminotransfer (ALT/SGP 36 U/L (12-78); Albumin, Blood 3.4 g/dL (3.4-5.0); Albumin/Globulin Ratio 0.9 (0.8-1.8); Alk Phos 91 U/L (50-136); Anion Gap 9 mmol/L (6-16); Aspartate Aminotrans (AST/SGOT 25 U/L (12-37); Bilirubin, Total 0.2 mg/dL (0.1-1.0); Blood Urea Nitrogen 12 mg/dL (8-24); Bun/Creatinine Ratio 17.2 (12.0-20.0); CO2, Blood 25 mmol/L (21-32); Calcium, Blood 8.6 mg/dL (8.5-10.1); Chloride, Blood 107 mmol/L (98-108); Ethanol (Alcohol), Blood, Med <3 mg/dL; Globulin, Blood 3.6 g/dL (2.2-4.0); Glomerular Filtration Rate >60 (60-); Glucose, Blood 128 mg/dL (70-99); Potassium, Blood 4.1 mmol/L (3.5-5.5); Salicylate 2.1 mg/dL (2.8-20.0); Sodium, Blood 141 mmol/L (136-145); Thyroxine (T4) 8.9 ug/dL (4.5-12.1)
[2018-07-26 10:26] LABS: Thyroid Stimulating Hormone 0.332 uIU/mL (0.360-4.800)
[2018-07-26 12:04] LABS: Source, Urine Clean Catch
[2018-07-26 12:11] LABS: Bilirubin, Urine Neg (Neg); Blood, Urine Neg (Neg); Glucose Qualitative, Urine Neg (Neg); Ketones, Urine Neg (Neg); Leukocyte Esterase, Urine Neg (Neg); Nitrite, Urine Neg (Neg); Protein, Urine Neg (Neg); Urobilinogen, Urine NORM (Normal)
[2018-07-26 12:12] LABS: Appearance, Urine Clear (Clear); Color, Urine No Color (P-Yellow)
[2018-07-26 12:31] LABS: U Amphetamine Screen Not Detected; U Barbituate Screen Not Detected; U Benzodiazapine Screen Not Detected; U Buprenorphine Screen Not Detected; U Cannabinoids Screen Not Detected; U Cocaine Screen Not Detected; U Methadone Screen Not Detected; U Methamphetamine Screen Not Detected; U Opiates Screen Not Detected; U Oxycodone Screen Not Detected; U Phencyclidine Screen Not Detected; U Propoxyphene Screen Not Detected
[2018-07-26] MEDS ORDERED: Prinivil10 MG PO (14:10)
[2018-07-26] MEDS ORDERED: PROAIR RESPICL90 MCG INH (14:11)
[2018-07-26] MEDS ORDERED: Lamotrigine25 MG PO (14:13)
[2018-07-26] MEDS ORDERED: Trazodone HCl300 MG PO (14:31)
== END 2018-07-26 15:42 | disposition home or self-care (01) ==
LOC: ER 08:57
PROVIDERS: Emergency Medicine
DX: R55 Syncope and collapse (principal); I10 Essential (primary) hypertension; F17.210 Nicotine dependence, cigarettes, uncomplicated; Z79.899 Other long term (current) drug therapy
CPT/HCPCS: 36415; 80053; 81003; 84436; 84443; 85025; 93005; 93010; 99284-25; G0480

== ENCOUNTER 2018-07-31 05:45 | Emergency (ER) | payer MEDICARE ==
[~2018-07-31] VITALS: Ht 182.9 cm; Wt 102.1 kg
[~2018-07-31 05:45] MED LIST changes: +Lamotrigine25 MG PO; +PROAIR RESPICL90 MCG INH; +Prinivil10 MG PO; +Trazodone HCl300 MG PO
[2018-07-31] MEDS ORDERED: Flonase 0.05% N16 GM (06:43)
== END 2018-07-31 06:50 | disposition home or self-care (01) ==
LOC: ER 05:45
DX: R42 Dizziness and giddiness (principal); R55 Syncope and collapse; J40 Bronchitis, not specified as acute or chronic; R09.81 Nasal congestion; F31.9 Bipolar disorder, unspecified; I10 Essential (primary) hypertension; D64.9 Anemia, unspecified; F17.210 Nicotine dependence, cigarettes, uncomplicated
CPT/HCPCS: 93005; 93010; 99284-25

== ENCOUNTER 2018-07-31 15:37 | Emergency (ER) | payer MEDICARE ==
[~2018-07-31] VITALS: Ht 177.8 cm; Wt 83.9 kg
[~2018-07-31 15:37] MED LIST changes: +Flonase 0.05% N16 GM
== END 2018-07-31 17:20 | disposition left against medical advice (07) ==
LOC: ER 15:37
DX: R55 Syncope and collapse (principal); F31.9 Bipolar disorder, unspecified; I10 Essential (primary) hypertension; D64.9 Anemia, unspecified; F17.210 Nicotine dependence, cigarettes, uncomplicated; Z79.899 Other long term (current) drug therapy
CPT/HCPCS: 93005; 93010; 99284-25

== ENCOUNTER 2018-08-05 05:49 | Emergency (ER) | payer MEDICARE ==
[~2018-08-05] VITALS: Ht 182.9 cm; Wt 102.1 kg
[2018-08-05] MEDS ORDERED: LAMO25 PO (06:03)
[2018-08-05] MEDS ORDERED: LISI5 PO (06:05)
[2018-08-05 06:54] LABS: BASOPHILS ABSOLUTE AUTO 0.04 K/mm3 (0.00-0.23); BASOPHILS PERCENT AUTO 1 % (0-2); EOSINOPHILS PERCENT AUTO 4 % (0-6); Hematocrit 43.8 % (37.0-53.0); Hemoglobin 13.7 g/dL (13.5-17.5); IMMATURE GRAN ABSOLUTE AUTO 0.03 K/mm3 (0.00-0.10); IMMATURE GRAN PERCENT AUTO 1 % (0-1); LYMPHOCYTES ABSOLUTE AUTO 1.69 K/mm3 (0.84-5.20); LYMPHOCYTES PERCENT AUTO 30 % (21-46); MONOCYTES ABSOLUTE AUTO 0.36 K/mm3 (0.16-1.47); MONOCYTES PERCENT AUTO 6 % (4-13); Mean Corpuscular HGB 27.3 pg (26.0-34.0); Mean Corpuscular HGB Conc 31.3 g/dL (31.5-36.5); Mean Corpuscular Volume 87 fL (80-100); NEUTROPHILS ABSOLUTE AUTO 3.32 K/mm3 (1.96-9.15); NEUTROPHILS PERCENT AUTO 59 % (41-73); Platelet Count 307 K/mm3 (150-400); RDW Coefficient Variation 14.7 % (11.7-14.2); RDW Standard Deviation 47.4 fL (35.1-46.3); Red Blood Cell Count 5.02 M/mm3 (4.30-5.90); White Blood Cell Count 5.64 K/mm3 (4.00-11.30)
[2018-08-05 07:09] LABS: Alanine Aminotransfer (ALT/SGP 35 U/L (12-78); Albumin, Blood 3.6 g/dL (3.4-5.0); Albumin/Globulin Ratio 1.1 (0.8-1.8); Alk Phos 81 U/L (50-136); Anion Gap 9 mmol/L (6-16); Aspartate Aminotrans (AST/SGOT 21 U/L (12-37); Bilirubin, Total 0.2 mg/dL (0.1-1.0); Blood Urea Nitrogen 15 mg/dL (8-24); Bun/Creatinine Ratio 19.5 (12.0-20.0); CO2, Blood 24 mmol/L (21-32); Calcium, Blood 8.7 mg/dL (8.5-10.1); Chloride, Blood 108 mmol/L (98-108); Creatinine, Blood 0.77 mg/dL (0.60-1.20); Globulin, Blood 3.3 g/dL (2.2-4.0); Glomerular Filtration Rate >60 (60-); Glucose, Blood 175 mg/dL (70-99); Sodium, Blood 141 mmol/L (136-145); Total Protein, Blood 6.9 g/dL (6.4-8.2); Troponin I <0.015 ng/mL (0.000-0.040)
[2018-08-05] MEDS ORDERED: ALBU90OI INH (09:11)
== END 2018-08-05 09:34 | disposition home or self-care (01) ==
LOC: ER 05:49
PROVIDERS: Emergency Medicine
DX: R55 Syncope and collapse (principal); J40 Bronchitis, not specified as acute or chronic; F31.9 Bipolar disorder, unspecified; F17.210 Nicotine dependence, cigarettes, uncomplicated; I10 Essential (primary) hypertension; F43.10 Post-traumatic stress disorder, unspecified; M54.9 Dorsalgia, unspecified; G89.29 Other chronic pain; Z79.899 Other long term (current) drug therapy
CPT/HCPCS: 71046; 80053; 83735; 84484; 85025; 93005; 93010; 99284-25

== ENCOUNTER 2018-09-25 13:18 | Emergency (ER) | payer MEDICARE, SELFPAY ==
[~2018-09-25] VITALS: Ht 182.9 cm; Wt 124.7 kg
[~2018-09-25 13:18] MED LIST changes: +ALBU90OI INH; +LAMO25 PO; +LISI5 PO
[2018-09-25 14:11] LABS: BASOPHILS ABSOLUTE AUTO 0.03 K/mm3 (0.00-0.23); BASOPHILS PERCENT AUTO 0 % (0-2); EOSINOPHILS PERCENT AUTO 3 % (0-6); Hematocrit 45.9 % (37.0-53.0); Hemoglobin 15.3 g/dL (13.5-17.5); IMMATURE GRAN ABSOLUTE AUTO 0.04 K/mm3 (0.00-0.10); IMMATURE GRAN PERCENT AUTO 1 % (0-1); LYMPHOCYTES ABSOLUTE AUTO 2.17 K/mm3 (0.84-5.20); LYMPHOCYTES PERCENT AUTO 31 % (21-46); MONOCYTES ABSOLUTE AUTO 0.67 K/mm3 (0.16-1.47); MONOCYTES PERCENT AUTO 10 % (4-13); Mean Corpuscular HGB 28.9 pg (26.0-34.0); Mean Corpuscular HGB Conc 33.3 g/dL (31.5-36.5); Mean Corpuscular Volume 87 fL (80-100); Mean Platelet Volume 9.8 fL (9.1-12.4); NEUTROPHILS ABSOLUTE AUTO 3.87 K/mm3 (1.96-9.15); NEUTROPHILS PERCENT AUTO 55 % (41-73); Platelet Count 266 K/mm3 (150-400); RDW Coefficient Variation 13.4 % (11.7-14.2); RDW Standard Deviation 42.8 fL (35.1-46.3); Red Blood Cell Count 5.29 M/mm3 (4.30-5.90); White Blood Cell Count 6.98 K/mm3 (4.00-11.30)
[2018-09-25 14:34] LABS: Alanine Aminotransfer (ALT/SGP 30 U/L (12-78); Albumin/Globulin Ratio 1.1 (0.8-1.8); Alk Phos 87 U/L (50-136); Anion Gap 6 mmol/L (6-16); Aspartate Aminotrans (AST/SGOT 21 U/L (12-37); Bilirubin, Total 0.2 mg/dL (0.1-1.0); Blood Urea Nitrogen 17 mg/dL (8-24); Bun/Creatinine Ratio 19.9 (12.0-20.0); CO2, Blood 26 mmol/L (21-32); Chloride, Blood 105 mmol/L (98-108); Creatinine, Blood 0.85 mg/dL (0.60-1.20); Globulin, Blood 3.5 g/dL (2.2-4.0); Glomerular Filtration Rate >60 (60-); Glucose, Blood 92 mg/dL (70-99); Potassium, Blood 4.1 mmol/L (3.5-5.5); Sodium, Blood 137 mmol/L (136-145); Total Protein, Blood 7.5 g/dL (6.4-8.2); Troponin I <0.015 ng/mL (0.000-0.040)
[2018-09-25] MEDS ORDERED: Lamotrigine100 MG PO (15:19)
[2018-09-30 10:25] LABS: Free Thyroxine 0.89 ng/dL (0.70-1.60)
[2018-09-30 10:28] LABS: Thyroid Stimulating Hormone 0.441 uIU/mL (0.360-4.800); Triiodothyronine, Free 3.14 pg/mL (2.18-3.98)
== END 2018-09-25 16:26 | disposition home or self-care (01) ==
LOC: ER 13:18
PROVIDERS: Emergency Medicine; Family Medicine
DX: R55 Syncope and collapse (principal); I10 Essential (primary) hypertension; F31.9 Bipolar disorder, unspecified; F43.10 Post-traumatic stress disorder, unspecified; G89.29 Other chronic pain; F17.210 Nicotine dependence, cigarettes, uncomplicated
CPT/HCPCS: 36415; 80053; 82947; 84439; 84443; 84481; 84484; 85025; 93005; 93010; 99284-25

== ENCOUNTER 2018-10-03 11:36 | Emergency (ER) | payer MEDICARE, SELFPAY ==
[~2018-10-03] VITALS: Ht 182.9 cm; Wt 108.9 kg
[~2018-10-03 11:36] MED LIST changes: +Lamotrigine100 MG PO
[2018-10-03] MEDS ORDERED: CYCL10 PO (12:53)
== END 2018-10-03 12:59 | disposition home or self-care (01) ==
LOC: ER 11:36
DX: R55 Syncope and collapse (principal); S00.83XA Contusion of other part of head, initial encounter; M54.9 Dorsalgia, unspecified; G89.29 Other chronic pain; W19.XXXA Unspecified fall, initial encounter; Z79.899 Other long term (current) drug therapy; F31.9 Bipolar disorder, unspecified; I10 Essential (primary) hypertension; D64.9 Anemia, unspecified; F17.210 Nicotine dependence, cigarettes, uncomplicated
CPT/HCPCS: 93005; 93010; 99284-25

== ENCOUNTER 2018-11-21 05:14 | Observation (INO) | payer MEDICARE, OTHER ==
[~2018-11-21] VITALS: Ht 185.4 cm; Wt 108.0 kg
[~2018-11-21 05:14] MED LIST changes: +CYCL10 PO
[2018-11-21] MEDS ORDERED: LORA1 PO (05:51)
[2018-11-21] MEDS ORDERED: LORA.5 PO (05:51)
[2018-11-21] MEDS ORDERED: CYCL10 PO (05:52)
[2018-11-21] MEDS ORDERED: ACET500 PO (05:53)
[2018-11-21] MEDS ORDERED: DOCU100 PO (05:53)
[2018-11-21] MEDS ORDERED: Lamictal200 MG PO (05:53)
[2018-11-21 06:05] LABS: BASOPHILS ABSOLUTE AUTO 0.04 K/mm3 (0.00-0.23); BASOPHILS PERCENT AUTO 1 % (0-2); EOSINOPHILS ABSOLUTE AUTO 0.25 K/mm3 (0.00-0.68); EOSINOPHILS PERCENT AUTO 3 % (0-6); Hemoglobin 12.6 g/dL (13.5-17.5); IMMATURE GRAN ABSOLUTE AUTO 0.05 K/mm3 (0.00-0.10); IMMATURE GRAN PERCENT AUTO 1 % (0-1); LYMPHOCYTES PERCENT AUTO 24 % (21-46); MONOCYTES ABSOLUTE AUTO 0.64 K/mm3 (0.16-1.47); MONOCYTES PERCENT AUTO 9 % (4-13); Mean Corpuscular HGB 29.3 pg (26.0-34.0); Mean Corpuscular HGB Conc 33.2 g/dL (31.5-36.5); Mean Corpuscular Volume 88 fL (80-100); Mean Platelet Volume 9.5 fL (9.1-12.4); NEUTROPHILS ABSOLUTE AUTO 4.66 K/mm3 (1.96-9.15); NEUTROPHILS PERCENT AUTO 63 % (41-73); Platelet Count 243 K/mm3 (150-400); RDW Coefficient Variation 13.2 % (11.7-14.2); RDW Standard Deviation 42.5 fL (35.1-46.3); White Blood Cell Count 7.44 K/mm3 (4.00-11.30)
[2018-11-21 06:26] LABS: Alanine Aminotransfer (ALT/SGP 37 U/L (12-78); Albumin, Blood 3.6 g/dL (3.4-5.0); Albumin/Globulin Ratio 1.2 (0.8-1.8); Alk Phos 75 U/L (50-136); Anion Gap 7 mmol/L (6-16); Aspartate Aminotrans (AST/SGOT 42 U/L (12-37); Bilirubin, Total 0.2 mg/dL (0.1-1.0); Blood Urea Nitrogen 20 mg/dL (8-24); CO2, Blood 26 mmol/L (21-32); Calcium, Blood 9.2 mg/dL (8.5-10.1); Chloride, Blood 107 mmol/L (98-108); Creatinine, Blood 0.83 mg/dL (0.60-1.20); Glomerular Filtration Rate >60 (60-); Glucose, Blood 105 mg/dL (70-99); Potassium, Blood 4.2 mmol/L (3.5-5.5); Sodium, Blood 140 mmol/L (136-145); Total Protein, Blood 6.6 g/dL (6.4-8.2)
[2018-11-21 07:38] LABS: Source, Urine Clean Catch
[2018-11-21 07:50] LABS: Bilirubin, Urine Neg (Neg); Blood, Urine Neg (Neg); Glucose Qualitative, Urine Neg (Neg); Ketones, Urine Neg (Neg); Leukocyte Esterase, Urine Neg (Neg); Nitrite, Urine Neg (Neg); Protein, Urine Neg (Neg); Urobilinogen, Urine NORM (Normal); pH, Urine 6.5 (5.0-8.0)
[2018-11-21 07:59] LABS: Appearance, Urine Clear (Clear); Color, Urine Yellow (P-Yellow)
[2018-11-21] MEDS ORDERED: TRAZ150T57 PO (12:32)
--- NOTE | 2018-11-21 13:55 | NUR ---
PT ARRIVED TO THE ROOM AT APPROXIMATLEY 1250. PT ALERT AND ORIENTED. FAMILY PRESENT. VSS. WILL CONTINUE TO MONITOR.
--- NOTE | 2018-11-21 15:29 | NUR ---
As I was walking [facility] pts room, I saw patient out in the [facility]. He is to be on bed rest so I asked him what I could do for him. He said he wanted to sign himself out. He was going home. I asked if he could set back into his room and wait for his nurse to come talk to him. He agreed. addictions recovery specialist went into room and talked to patient. Allowing him to go outside with his friend that is in the room with him, and a wheelchair.
--- NOTE | 2018-11-21 16:14 | NUR ---
PT HAS BEEN EDUCATED ABOUT NEEDING BEDREST WHILE IN THE HOSPITAL, AND NOT AMBULATING WITHOUT ASSISTANCE. PT CONTINUES TO GO OUTSIDE TO SMOKE WITH FAMILY ASSISTANCE. PT USES WALKER WHEN OOB AND FAMILY FOLLOWS PT WITH A WHEELCHAIR SO HE CAN SIT DOWN IF HE BECOMES DIZZY. VSS. WILL CONTINUE TO MONITOR.
--- NOTE | 2018-11-21 18:02 | NUR ---
EVENING ASSESSMENT NO CHANGES TO REPORT SINCE ADMIT ASSESSMENT. BP ELEVATED. DR. LEE NOTIFIED AND HYDRALAZINE GIVEN. WILL CONTINUE TO MONITOR.
--- NOTE | 2018-11-21 19:28 | NUR ---
SHIFT SUMMARY PT HAS HAD NO DIZZINESS OR FAINTING SINCE ARRIVAL TO THE UNIT. HE REMAINS NSR ON TELE. PAIN HAS BEEN MANAGED WITH FLEXERIL, TYLENOL AND LIDOCAIN PATCH.
--- NOTE | 2018-11-21 20:33 | NUR ---
Pt wanted to review levels of care and treatment. wants to be DNR based on religous beliefs. Pt states poor literacy and abilty to write. Careful conversation pt displayed understanding. will follow up with care needs he had many questions
--- NOTE | 2018-11-21 22:30 | NUR ---
PT AMBULATION PT REQUESTING TO AMBULATE AROUND UNIT. STATES THAT AMBULATING "HELPS WITH HIS BACK PAIN". PT OFFERED EGG CRATE AND ASSISTANCE WITH REPOSITIONING. PT EDUCATED ON CURRENT CONDITION AND RISKS OF AMBULATION AND FALLING. PT VERBALIZES UNDERSTANDING. PT APPEARS TO BE STEADY ON HIS FEET AT THIS TIME WHILE AMBULATING WITH HIS CANE. PT ALSO INFORMED THAT HE IS ADVISED TO AMBULATE WITH FAMILY AND STAFF ONLY AND TO HAVE SECONDARY PERSON FOLLOW WITH WHEELCHAIR IN CASE OF DIZZINESS. PT VERBALIZED UNDERSTANDING OF RISKS AND ADVISED AMBULATORY METHODS. PT CONTINUES TO WANT TO AMBULATE AT THIS TIME. FAMILY TO FOLLOW PATIENT WITH WHEELCHAIR.
--- NOTE | 2018-11-22 03:15 | NUR ---
PT AGITATION PT IS UP AND WALKING TO HALLWAY ASKING FOR COFFEE AND STATING THAT HE IS "GOING TO WALK OVER TO [facility] AND GET SOME". PT WALKED BACK TO ROOM AND EDUCATED ON THE NEED TO STAY WITHIN THE FACILITY AT THIS TIME. PT EDUCATED ON NEED FOR ASSISTANCE WITH AMBULATION AND UPDATED ON CURRENT CONDITION AT LENGTH AND POTENTIAL RISK WITH CURRENT ACTIONS. PT PROVIDED WITH CHAIR FOR CHANGE OF POSITION AND REQUESTING A SANDWICH. AFTER RETURNING FROM [place], PT FOUND TO BE IN THE BATHROOM WITH TELEMETRY BOX ON THE FLOOR AND IV PULLED OUT WITH BLOOD DRIPPING IN BATHROOM. PT STATES "I AM LEAVING, IM OUT OF HERE". PT EXPRESSING FRUSTRATION WITH "BEING TOLD WHAT TO DO". EXPRESSED TO PT THE SEVERITY OF ILLNESS AND HIS RIGHTS TO LEAVE AGAINST MEDICAL ADVICE. TRAIN ENGINEER TO ROOM AND BOTH CHARGE NURSE AND THIS RN EDUCATED PATIENT ON PROCEDURES/PROTOCOLS FOR PATIENT SAFETY. PT VERBALIZES UNDERSTANDING AND AGREES TO STAY AT THIS TIME. NEW IV PLACED AND TELE BOX PLACED BACK ON PATIENT. FAMILY MEMBER AT BEDSIDE EXPRESSING TO PATIENT THE NEED FOR HIM TO STAY AND CONTINUE WITH PLAN OF CARE. FAMILY ASSISTING IN PSYCHOSOCIAL DISTRESS. PT CURRENTLY SITTING AT BEDSIDE. CALL LIGHT IS IN REACH AND PT ENCOURAGED TO USE CALL LIGHT FOR ASSISTANCE WITH NEEDS.
[2018-11-22 03:55] LABS: Anion Gap 7 mmol/L (6-16); Blood Urea Nitrogen 20 mg/dL (8-24); Bun/Creatinine Ratio 23.7 (12.0-20.0); CO2, Blood 26 mmol/L (21-32); Calcium, Blood 9.4 mg/dL (8.5-10.1); Chloride, Blood 108 mmol/L (98-108); Creatinine, Blood 0.84 mg/dL (0.60-1.20); Glomerular Filtration Rate >60 (60-); Glucose, Blood 103 mg/dL (70-99); Magnesium, Blood 2.3 mg/dL (1.6-2.4); Sodium, Blood 141 mmol/L (136-145)
--- NOTE | 2018-11-22 06:46 | NUR ---
SHIFT SUMMARY PT HAS REMAINED AOX4. VSS. PT CONTINUES TO ATTEMPT SELF AMBULATION AND LEAVE THE UNIT WITHOUT ASSISTANCE FROM STAFF OR FAMILY. PT IS MOSTLY PLEASANT, BUT NOT OVERALL COOPERATIVE WITH PLAN OF CARE. PT REQUIRES REPEATED EDUCATION ON SEVERITY OF ILLNESS AND REASON FOR ADMISSION TO HOSPITAL. FAMILY HAS REMAINED AT BEDSIDE AND CONTINUES TO ENCOURAGE PATIENT TO BE COMPLIANT WITH CARE. NO CARDIAC EVENTS NOTED THROUGHOUT THE NIGHT. NO OTHER CHANGES NOTED FROM INITIAL ASSESSMENT. WILL CONTINUE TO MONITOR AND REPORT TO ONCOMING SHIFT RN. BED IN LOW POSITION, CALL LIGHT IN REACH.
--- NOTE | 2018-11-22 07:45 | NUR ---
ASSUMED CARE PT SITTING AT BEDSIDE. ALERT AND ORIENTED X3. VERY ANXIOUS, ASKING WHEN HE WILL BE GETTING HIS LIFEVEST. PT IS WANTING TO LEAVE AND CONTINUOUSLY IS ASKING WHEN THEY WILL COME WITH HIS LIFEVEST. PT INFORMED THAT WE ARE WORKING ON IT, BUT IT WILL TAKE TIME. PT CONTINUES TO WANT TO GO HOME. PT USING A WHEELCHAIR TO GO OUT AND SMOKE. LUNG SOUNDS CLEAR, NSR RATE 84 PER TELEMETRY. C/O 7/10 BACK PAIN, MEDICATED WITH PRN MEDS. C/O NUMBNESS TO BILATERAL FEET. AMBULATING INDEPENDENTLY IN ROOM. VISITOR AT BEDSIDE. WILL CONTINUE TO MONITOR.
--- NOTE | 2018-11-22 08:42 | NUR ---
Patient is walkind around and in street clothes. Patient tells me that he is being fitted for a "life vest" this AM and asked if I could pray for him and his condition. I gladly provide prayer. I also provide a calming presence and anxiety containment. Patient responds well and shows signs of reduced stress. I will continue to remain avalailable to patient.
--- NOTE | 2018-11-22 09:45 | NUR ---
PT STATES HE IS GONNA LEAVE. "THEY WERE SUPPOSED TO BE HERE AT 8 O'CLOCK". INFORMED PT THAT WE ARE WORKING ON THE LIFEVEST. PERRY ISIDRO CALLED [facility] FOR INFORMATION. AWAITING ORDERS. PT AGREES TO STAY UNTIL THE END OF DAYSHIFT. VISITOR AT BEDSIDE.
--- NOTE | 2018-11-22 12:25 | NUR ---
AMA DISCHARGE PT ADAMANT THAT HE IS LEAVING. PT PULLED IV FROM LEFT ARM. GAUZE AND COBAN APPLIED. AMA FORM GIVEN TO PT, PT AGREEABLE TO SIGN. PT AMBULATED SELF OUT OF HOSPITAL. LOOKING FOR TRANSIT DEPARTMENT CLERK OFFICE. PT WALKED OVER TO TRANSIT DEPARTMENT CLERK OFFICE. 1250 CAME BACK TO PCU, LOOKING FOR THIS RN. CALL OR CONTACT CENTRE COACH SPOKE WITH PT. PT MADE AWARE THAT HE HAS BEEN DISCHARGED AND IF HE NEEDS MEDICAL ATTENTION HE NEEDS TO GO TO THE ER.
--- NOTE | 2018-11-22 13:27 | NUR ---
PAL CARE VISIT: Attempted to see pt a few times earlier but he was out of room. He is dressed and packing, hoping for d/c soon but determined to go by the end of this shift either way. I provided pt with the original completed and signed by Dr LONGO. I instructed him to keep the original with him at all times and to provide it to any medical provider or facility he utilized. [place] form also faxed to our medical records for scanning. Pt is being considered for a life vest and believes someone will see him today for that purpose. Pt educated on the lifevest briefly and his friend, Aman's questions answered as able. I encouraged them to ask questions of cardiology staff/drs and life vest personel. Pt pacing room and visibly anxious. He spoke of chronic low back pain. He is walking with a cane, t/o the hospital and outside. Pt decided to go on another walk-about while we were talking so visit ended at that time. Spoke with RN about my visit and the DONTA.
== END 2018-11-22 12:38 | disposition left against medical advice (07) ==
LOC: ER 05:14 → ERHOLD 05:15 → PCU 12:41
PROVIDERS: Emergency Medicine; ADMIT Internal Medicine
DX: I49.8 Other specified cardiac arrhythmias (principal); F31.9 Bipolar disorder, unspecified; I10 Essential (primary) hypertension; F17.210 Nicotine dependence, cigarettes, uncomplicated; Z79.899 Other long term (current) drug therapy
CPT/HCPCS: 36415; 71046; 80048; 80053; 81003; 83735; 85025; 93005; 93010; 96372; 96374; 99285-25; A9270; G0378; J0360; J1650; J7030

== ENCOUNTER 2018-11-23 04:08 | Emergency (ER) | payer MEDICARE, OTHER ==
[~2018-11-23] VITALS: Ht 185.4 cm; Wt 108.0 kg
[~2018-11-23 04:08] MED LIST changes: +ACET500 PO; +DOCU100 PO; +LORA.5 PO; +LORA1 PO; +Lamictal200 MG PO; +TRAZ150T57 PO
[2018-11-23 04:41] LABS: Source, Urine Clean Catch
[2018-11-23 04:44] LABS: BASOPHILS ABSOLUTE AUTO 0.04 K/mm3 (0.00-0.23); BASOPHILS PERCENT AUTO 1 % (0-2); EOSINOPHILS ABSOLUTE AUTO 0.23 K/mm3 (0.00-0.68); EOSINOPHILS PERCENT AUTO 3 % (0-6); Hematocrit 42.1 % (37.0-53.0); Hemoglobin 14.3 g/dL (13.5-17.5); IMMATURE GRAN ABSOLUTE AUTO 0.05 K/mm3 (0.00-0.10); IMMATURE GRAN PERCENT AUTO 1 % (0-1); LYMPHOCYTES ABSOLUTE AUTO 1.72 K/mm3 (0.84-5.20); LYMPHOCYTES PERCENT AUTO 22 % (21-46); MONOCYTES ABSOLUTE AUTO 0.71 K/mm3 (0.16-1.47); MONOCYTES PERCENT AUTO 9 % (4-13); Mean Corpuscular Volume 88 fL (80-100); Mean Platelet Volume 9.4 fL (9.1-12.4); NEUTROPHILS ABSOLUTE AUTO 5.03 K/mm3 (1.96-9.15); NEUTROPHILS PERCENT AUTO 65 % (41-73); Platelet Count 250 K/mm3 (150-400); RDW Coefficient Variation 13.2 % (11.7-14.2); RDW Standard Deviation 42.9 fL (35.1-46.3); Red Blood Cell Count 4.77 M/mm3 (4.30-5.90); White Blood Cell Count 7.78 K/mm3 (4.00-11.30)
[2018-11-23 04:45] LABS: Bilirubin, Urine Neg (Neg); Blood, Urine Neg (Neg); Glucose Qualitative, Urine Neg (Neg); Ketones, Urine Neg (Neg); Leukocyte Esterase, Urine Neg (Neg); Nitrite, Urine Neg (Neg); Protein, Urine Neg (Neg); Specific Gravity, Urine 1.015 (1.003-1.022); Urobilinogen, Urine NORM (Normal)
[2018-11-23 04:46] LABS: Appearance, Urine Clear (Clear); Color, Urine Yellow (P-Yellow)
[2018-11-23 05:11] LABS: Alanine Aminotransfer (ALT/SGP 39 U/L (12-78); Albumin, Blood 3.8 g/dL (3.4-5.0); Albumin/Globulin Ratio 1.1 (0.8-1.8); Alk Phos 75 U/L (50-136); Anion Gap 9 mmol/L (6-16); Aspartate Aminotrans (AST/SGOT 33 U/L (12-37); Bilirubin, Total 0.3 mg/dL (0.1-1.0); Blood Urea Nitrogen 17 mg/dL (8-24); Bun/Creatinine Ratio 22.8 (12.0-20.0); CO2, Blood 24 mmol/L (21-32); Calcium, Blood 9.3 mg/dL (8.5-10.1); Chloride, Blood 107 mmol/L (98-108); Creatinine, Blood 0.75 mg/dL (0.60-1.20); Globulin, Blood 3.5 g/dL (2.2-4.0); Glomerular Filtration Rate >60 (60-); Glucose, Blood 103 mg/dL (70-99); Potassium, Blood 4.3 mmol/L (3.5-5.5); Sodium, Blood 140 mmol/L (136-145); Total Protein, Blood 7.3 g/dL (6.4-8.2)
== END 2018-11-23 04:49 | disposition left against medical advice (07) ==
LOC: ER 04:08
PROVIDERS: Emergency Medicine
DX: R41.0 Disorientation, unspecified (principal); I10 Essential (primary) hypertension; F31.9 Bipolar disorder, unspecified; F43.10 Post-traumatic stress disorder, unspecified; F17.210 Nicotine dependence, cigarettes, uncomplicated; Z79.899 Other long term (current) drug therapy; Z79.02 Long term (current) use of antithrombotics/antiplatelets
CPT/HCPCS: 36415; 80053; 81003; 85025; 93005; 93010; 99285-25

== ENCOUNTER 2018-11-24 22:01 | Emergency (ER) | payer MEDICARE, OTHER ==
[~2018-11-24] VITALS: Ht 185.4 cm; Wt 108.0 kg
[2018-11-24 22:52] LABS: BASOPHILS ABSOLUTE AUTO 0.03 K/mm3 (0.00-0.23); BASOPHILS PERCENT AUTO 0 % (0-2); EOSINOPHILS ABSOLUTE AUTO 0.26 K/mm3 (0.00-0.68); EOSINOPHILS PERCENT AUTO 3 % (0-6); Hematocrit 40.3 % (37.0-53.0); Hemoglobin 13.4 g/dL (13.5-17.5); IMMATURE GRAN ABSOLUTE AUTO 0.06 K/mm3 (0.00-0.10); IMMATURE GRAN PERCENT AUTO 1 % (0-1); LYMPHOCYTES ABSOLUTE AUTO 2.21 K/mm3 (0.84-5.20); LYMPHOCYTES PERCENT AUTO 21 % (21-46); MONOCYTES ABSOLUTE AUTO 0.92 K/mm3 (0.16-1.47); MONOCYTES PERCENT AUTO 9 % (4-13); Mean Corpuscular HGB 29.5 pg (26.0-34.0); Mean Corpuscular HGB Conc 33.3 g/dL (31.5-36.5); Mean Corpuscular Volume 89 fL (80-100); Mean Platelet Volume 9.5 fL (9.1-12.4); NEUTROPHILS ABSOLUTE AUTO 6.86 K/mm3 (1.96-9.15); NEUTROPHILS PERCENT AUTO 66 % (41-73); Platelet Count 280 K/mm3 (150-400); RDW Coefficient Variation 13.3 % (11.7-14.2); RDW Standard Deviation 43.4 fL (35.1-46.3); Red Blood Cell Count 4.54 M/mm3 (4.30-5.90); White Blood Cell Count 10.34 K/mm3 (4.00-11.30)
[2018-11-24 23:20] LABS: Alanine Aminotransfer (ALT/SGP 39 U/L (12-78); Albumin, Blood 3.8 g/dL (3.4-5.0); Albumin/Globulin Ratio 1.2 (0.8-1.8); Alk Phos 80 U/L (50-136); Anion Gap 7 mmol/L (6-16); Aspartate Aminotrans (AST/SGOT 29 U/L (12-37); Bilirubin, Total 0.2 mg/dL (0.1-1.0); Blood Urea Nitrogen 18 mg/dL (8-24); Bun/Creatinine Ratio 23.4 (12.0-20.0); CO2, Blood 26 mmol/L (21-32); Calcium, Blood 9.3 mg/dL (8.5-10.1); Chloride, Blood 106 mmol/L (98-108); Creatinine, Blood 0.77 mg/dL (0.60-1.20); Globulin, Blood 3.3 g/dL (2.2-4.0); Glomerular Filtration Rate >60 (60-); Glucose, Blood 115 mg/dL (70-99); Potassium, Blood 3.9 mmol/L (3.5-5.5); Sodium, Blood 139 mmol/L (136-145); Total Protein, Blood 7.1 g/dL (6.4-8.2); Troponin I <0.015 ng/mL (0.000-0.040)
[2018-11-25] MEDS ORDERED: SUBVENITE200 MG PO (16:12)
== END 2018-11-24 23:49 | disposition home or self-care (01) ==
LOC: ER 22:01
PROVIDERS: Emergency Medicine
DX: R55 Syncope and collapse (principal); I10 Essential (primary) hypertension; F43.10 Post-traumatic stress disorder, unspecified; D64.9 Anemia, unspecified; G89.29 Other chronic pain; M54.9 Dorsalgia, unspecified; F17.210 Nicotine dependence, cigarettes, uncomplicated; Z91.14 Patient's other noncompliance with medication regimen; F31.9 Bipolar disorder, unspecified; Z79.899 Other long term (current) drug therapy
CPT/HCPCS: 36415; 80053; 84484; 85025; 93005; 93010; 99284-25

== ENCOUNTER 2018-11-25 14:47 | Emergency (ER) | payer MEDICARE, OTHER ==
[~2018-11-25] VITALS: Ht 185.4 cm; Wt 108.0 kg
[2018-11-25] MEDS ORDERED: SUBVENITE200 MG PO (16:12)
== END 2018-11-25 16:24 | disposition left against medical advice (07) ==
LOC: ER 14:47
DX: Z53.21 Procedure and treatment not carried out due to patient leaving prior to being seen by health care provider (principal)
CPT/HCPCS: 93005; 93010; 99284-25

== ENCOUNTER 2018-11-25 19:56 | Emergency (ER) | payer MEDICARE, OTHER ==
[~2018-11-25] VITALS: Ht 182.9 cm; Wt 90.7 kg
[~2018-11-25 19:56] MED LIST changes: +SUBVENITE200 MG PO
== END 2018-11-25 20:24 | disposition left against medical advice (07) ==
LOC: ER 19:56
DX: Z53.21 Procedure and treatment not carried out due to patient leaving prior to being seen by health care provider (principal)

== ENCOUNTER 2018-11-25 20:31 | Emergency (ER) | payer MEDICARE, OTHER ==
[~2018-11-25] VITALS: Ht 185.4 cm; Wt 105.7 kg
== END 2018-11-25 21:18 | disposition left against medical advice (07) ==
LOC: ER 20:31
DX: Z53.21 Procedure and treatment not carried out due to patient leaving prior to being seen by health care provider (principal)

== ENCOUNTER 2018-11-26 02:20 | Emergency (ER) | payer MEDICARE, OTHER ==
[~2018-11-26] VITALS: Ht 182.9 cm; Wt 90.7 kg
== END 2018-11-26 02:50 | disposition home or self-care (01) ==
LOC: ER 02:20
DX: I49.8 Other specified cardiac arrhythmias (principal); F31.9 Bipolar disorder, unspecified; I10 Essential (primary) hypertension; F43.10 Post-traumatic stress disorder, unspecified; F32.9 Major depressive disorder, single episode, unspecified; F17.210 Nicotine dependence, cigarettes, uncomplicated; Z79.899 Other long term (current) drug therapy
CPT/HCPCS: 93005; 93010; 99284-25

== ENCOUNTER 2018-11-27 05:34 | Emergency (ER) | payer MEDICARE, OTHER ==
[~2018-11-27] VITALS: Ht 185.4 cm; Wt 102.1 kg
== END 2018-11-27 06:27 | disposition home or self-care (01) ==
LOC: ER 05:34
DX: F31.9 Bipolar disorder, unspecified (principal); I10 Essential (primary) hypertension; D64.9 Anemia, unspecified; G89.29 Other chronic pain; F17.200 Nicotine dependence, unspecified, uncomplicated; Z79.899 Other long term (current) drug therapy
CPT/HCPCS: 99284

== ENCOUNTER → 2019-01-13 | Outpatient (CLI) | payer MEDICARE, OTHER | END | disposition home or self-care (01) | LOC: LAB SHORT 10:36 → PLD 10:36 | DX: D22.5 Melanocytic nevi of trunk (principal); L82.1 Other seborrheic keratosis | CPT/HCPCS: 88305 ==

== ENCOUNTER 2020-01-12 08:19 | Emergency (ER) | payer MEDICARE ==
[~2020-01-12] VITALS: Ht 182.9 cm; Wt 106.1 kg
[~2020-01-12 08:19] MED LIST changes: +BACL10 PO; +CLON1; +DIVA500ER PO; +ESZO3 PO; +LATA.005SO BOTHEYES; +MELA3 PO; +Nicorette4 MG PO; +RISP4 PO; +Seroquel400 MG PO; +VITAMIN D325 MC3 PO
[2020-01-12 09:37] LABS: BASOPHILS ABSOLUTE AUTO 0.03 K/mm3 (0.00-0.23); BASOPHILS PERCENT AUTO 0 % (0-2); EOSINOPHILS ABSOLUTE AUTO 0.12 K/mm3 (0.00-0.68); EOSINOPHILS PERCENT AUTO 1 % (0-6); Hematocrit 45.1 % (37.0-53.0); Hemoglobin 14.4 g/dL (13.5-17.5); IMMATURE GRAN ABSOLUTE AUTO 0.12 K/mm3 (0.00-0.10); IMMATURE GRAN PERCENT AUTO 1 % (0-1); LYMPHOCYTES ABSOLUTE AUTO 1.83 K/mm3 (0.84-5.20); LYMPHOCYTES PERCENT AUTO 21 % (21-46); MONOCYTES ABSOLUTE AUTO 0.75 K/mm3 (0.16-1.47); MONOCYTES PERCENT AUTO 9 % (4-13); Mean Corpuscular HGB 30.5 pg (26.0-34.0); Mean Corpuscular HGB Conc 31.9 g/dL (31.5-36.5); Mean Corpuscular Volume 96 fL (80-100); Mean Platelet Volume 10.5 fL (9.1-12.4); NEUTROPHILS ABSOLUTE AUTO 5.75 K/mm3 (1.96-9.15); NEUTROPHILS PERCENT AUTO 67 % (41-73); Platelet Count 183 K/mm3 (150-400); RDW Coefficient Variation 12.7 % (11.7-14.2); RDW Standard Deviation 44.8 fL (35.1-46.3); Red Blood Cell Count 4.72 M/mm3 (4.30-5.90)
[2020-01-12 09:54] LABS: Alanine Aminotransfer (ALT/SGP 43 U/L (12-78); Albumin, Blood 3.4 g/dL (3.4-5.0); Alk Phos 63 U/L (50-136); Anion Gap 8 mmol/L (6-16); Aspartate Aminotrans (AST/SGOT 24 U/L (12-37); Bilirubin, Total 0.3 mg/dL (0.1-1.0); Blood Urea Nitrogen 18 mg/dL (8-24); Bun/Creatinine Ratio 21.4 (12.0-20.0); CO2, Blood 26 mmol/L (21-32); Chloride, Blood 109 mmol/L (98-108); Creatinine, Blood 0.84 mg/dL (0.60-1.20); Globulin, Blood 3.5 g/dL (2.2-4.0); Glomerular Filtration Rate >60 (60-); Glucose, Blood 104 mg/dL (70-99); Potassium, Blood 4.5 mmol/L (3.5-5.5); Sodium, Blood 143 mmol/L (136-145); Total Protein, Blood 6.9 g/dL (6.4-8.2)
== END 2020-01-12 12:00 | disposition home or self-care (01) ==
LOC: ER 08:19
PROVIDERS: Physician Assistant
DX: R05 Cough (principal); R06.02 Shortness of breath; R41.0 Disorientation, unspecified; R26.89 Other abnormalities of gait and mobility; R53.1 Weakness; F31.9 Bipolar disorder, unspecified; I10 Essential (primary) hypertension; F43.10 Post-traumatic stress disorder, unspecified; F17.200 Nicotine dependence, unspecified, uncomplicated; Z79.899 Other long term (current) drug therapy
CPT/HCPCS: 70450; 71046; 80053; 82140; 85025; 99284-25

== ENCOUNTER → 2020-02-20 | Outpatient (CLI) | payer MEDICARE ==
[~2020-02-20] MED LIST changes: +ABAT250V PO; +AMOCLA875 PO; +Benztropine Me0.5 MG PO; -CLON1; +CLONAZEPAM1 MG PO; +DEPAKOTE ER500 M1 PO; +FISH OIL 1,2001 EAC7 PO; +IPRAT-ALBUT 0.5-3 ML INH; +LINZESS145 MCG PO; -MELA3 PO; +MELATONIN1010 PO; +MIRALAX17 GM PO; +QUETIAPINE FUM PO; +RISP2 PO; +SPIRIVA RESPIMAT4 G3 INH; -Seroquel400 MG PO; +VISBIOME PROBIOTIC PO
[2020-02-20 15:16] LABS: Source, Urine Clean Catch
[2020-02-20 18:59] LABS: Appearance, Urine Clear (Clear); Bilirubin, Urine Neg (Neg); Blood, Urine Neg (Neg); Color, Urine Yellow (P-Yellow); Glucose Qualitative, Urine Neg (Neg); Ketones, Urine Neg (Neg); Leukocyte Esterase, Urine Neg (Neg); Nitrite, Urine Neg (Neg); Protein, Urine Neg (Neg); Specific Gravity, Urine 1.005 (1.003-1.022); Urobilinogen, Urine NORM (Normal)
== END | disposition home or self-care (01) ==
LOC: LAB 15:13
PROVIDERS: Family Medicine
DX: R30.0 Dysuria (principal)
CPT/HCPCS: 81003

== ENCOUNTER 2020-04-06 07:34 | Inpatient (IN) | payer OTHER ==
[~2020-04-06] VITALS: Ht 185.4 cm; Wt 96.0 kg
[~2020-04-06 07:34] MED LIST changes: -ABAT250V PO; -AMOCLA875 PO; -BACL10 PO; -Benztropine Me0.5 MG PO; -CLONAZEPAM1 MG PO; -DEPAKOTE ER500 M1 PO; -DIVA500ER PO; -ESZO3 PO; -FISH OIL 1,2001 EAC7 PO; -IPRAT-ALBUT 0.5-3 ML INH; -LATA.005SO BOTHEYES; -LINZESS145 MCG PO; -MELATONIN1010 PO; -MIRALAX17 GM PO; -QUETIAPINE FUM PO; -RISP2 PO; -RISP4 PO; -SPIRIVA RESPIMAT4 G3 INH; -VISBIOME PROBIOTIC PO
[2020-04-06 08:27] LABS: BASOPHILS ABSOLUTE AUTO 0.03 K/mm3 (0.00-0.23); BASOPHILS PERCENT AUTO 0 % (0-2); EOSINOPHILS ABSOLUTE AUTO 0.01 K/mm3 (0.00-0.68); EOSINOPHILS PERCENT AUTO 0 % (0-6); Hematocrit 46.2 % (37.0-53.0); Hemoglobin 15.4 g/dL (13.5-17.5); IMMATURE GRAN ABSOLUTE AUTO 0.06 K/mm3 (0.00-0.10); IMMATURE GRAN PERCENT AUTO 1 % (0-1); LYMPHOCYTES ABSOLUTE AUTO 0.77 K/mm3 (0.84-5.20); LYMPHOCYTES PERCENT AUTO 6 % (21-46); MONOCYTES ABSOLUTE AUTO 1.24 K/mm3 (0.16-1.47); MONOCYTES PERCENT AUTO 10 % (4-13); Mean Corpuscular HGB 30.7 pg (26.0-34.0); Mean Corpuscular HGB Conc 33.3 g/dL (31.5-36.5); Mean Corpuscular Volume 92 fL (80-100); Mean Platelet Volume 10.5 fL (9.1-12.4); NEUTROPHILS ABSOLUTE AUTO 10.73 K/mm3 (1.96-9.15); NEUTROPHILS PERCENT AUTO 84 % (41-73); Platelet Count 211 K/mm3 (150-400); RDW Coefficient Variation 12.2 % (11.7-14.2); Red Blood Cell Count 5.02 M/mm3 (4.30-5.90); White Blood Cell Count 12.84 K/mm3 (4.00-11.30)
[2020-04-06 08:52] LABS: Alanine Aminotransfer (ALT/SGP 59 U/L (12-78); Albumin, Blood 3.6 g/dL (3.4-5.0); Albumin/Globulin Ratio 0.9 (0.8-1.8); Alk Phos 69 U/L (50-136); Anion Gap 13 mmol/L (6-16); Aspartate Aminotrans (AST/SGOT 36 U/L (12-37); Bilirubin, Total 0.5 mg/dL (0.1-1.0); Blood Urea Nitrogen 22 mg/dL (8-24); Bun/Creatinine Ratio 23.9 (12.0-20.0); CO2, Blood 24 mmol/L (21-32); Calcium, Blood 9.5 mg/dL (8.5-10.1); Chloride, Blood 100 mmol/L (98-108); Creatinine, Blood 0.92 mg/dL (0.60-1.20); Globulin, Blood 4.1 g/dL (2.2-4.0); Glomerular Filtration Rate >60 (60-); Glucose, Blood 179 mg/dL (70-99); Potassium, Blood 4.2 mmol/L (3.5-5.5); Sodium, Blood 137 mmol/L (136-145); Total Protein, Blood 7.7 g/dL (6.4-8.2)
[2020-04-06] MEDS ORDERED: ESZO3 PO ×2 (12:26)
[2020-04-06] MEDS ORDERED: DIVA500ER PO ×2 (12:28)
[2020-04-06] MEDS ORDERED: LATA.005SO BOTHEYES ×2 (12:28)
[2020-04-06] MEDS ORDERED: QUETIAPINE FUM PO ×2 (12:28)
[2020-04-06] MEDS ORDERED: RISP4 PO ×2 (12:29)
[2020-04-06] MEDS ORDERED: RISP2 PO ×2 (12:30)
[2020-04-06] MEDS ORDERED: LINZESS145 MCG PO ×2 (12:31)
[2020-04-06] MEDS ORDERED: Benztropine Me0.5 MG PO ×2 (12:31)
[2020-04-06] MEDS ORDERED: CLON1 PO ×2 (12:32)
[2020-04-06] MEDS ORDERED: CLONAZEPAM1 MG PO ×2 (12:33)
[2020-04-06] MEDS ORDERED: MELATONIN1010 PO ×2 (12:35)
[2020-04-06] MEDS ORDERED: FISH OIL 1,2001 EAC7 PO ×2 (12:36)
[2020-04-06] MEDS ORDERED: DEPAKOTE ER500 M1 PO ×2 (15:01)
[2020-04-06] MEDS ORDERED: BACL10 PO ×2 (15:02)
[2020-04-06] MEDS ORDERED: MIRALAX17 GM PO ×2 (15:03)
--- NOTE | 2020-04-06 18:34 | NUR ---
SHIFT SUMMARY: ADMIT FROM ER AT 1400 BY STRETCHER. PT IS ALERT AND ORIENTED. ON 3 L NASAL CANNULA. SATING ABOVE 92%. TELE SHOWING SINUS RHYTHM/SINUS TACH WITH HR 90-100'S. FLAT AFFECT WITH INCREASING INTEREST THROUGHOUT THE AFTERNOON. BROTHER AND SISTER IN TO SEE PATIENT. UP TO SHOWER WITH OT. 1 PERSON STAND BY ASSIST, USING WALKER. DENIES CHEST PAIN/PRESSURE. SHORTNESS OF BREATH WITH ACTIVITY. INCONTINENT AT TIMES, ATTENDS IN PLACE. UP TO CHAIR LATER THIS EVENING. VITAL SIGNS STABLE. NO ACUTE CHANGES THIS SHIFT.
[2020-04-06 23:24] LABS: U Amphetamine Screen Not Detected; U Barbituate Screen Not Detected; U Benzodiazapine Screen Not Detected; U Buprenorphine Screen Not Detected; U Cannabinoids Screen Not Detected; U Cocaine Screen Not Detected; U Methadone Screen Not Detected; U Methamphetamine Screen Not Detected; U Opiates Screen Not Detected; U Oxycodone Screen Not Detected; U Phencyclidine Screen Not Detected; U Propoxyphene Screen Not Detected
[2020-04-07 04:13] LABS: BASOPHILS ABSOLUTE AUTO 0.01 K/mm3 (0.00-0.23); BASOPHILS PERCENT AUTO 0 % (0-2); EOSINOPHILS ABSOLUTE AUTO 0.18 K/mm3 (0.00-0.68); EOSINOPHILS PERCENT AUTO 2 % (0-6); Hematocrit 38.4 % (37.0-53.0); Hemoglobin 12.2 g/dL (13.5-17.5); IMMATURE GRAN ABSOLUTE AUTO 0.03 K/mm3 (0.00-0.10); IMMATURE GRAN PERCENT AUTO 0 % (0-1); LYMPHOCYTES ABSOLUTE AUTO 1.98 K/mm3 (0.84-5.20); LYMPHOCYTES PERCENT AUTO 26 % (21-46); MONOCYTES ABSOLUTE AUTO 0.86 K/mm3 (0.16-1.47); MONOCYTES PERCENT AUTO 11 % (4-13); Mean Corpuscular HGB 30.5 pg (26.0-34.0); Mean Corpuscular HGB Conc 31.8 g/dL (31.5-36.5); Mean Corpuscular Volume 96 fL (80-100); Mean Platelet Volume 10.3 fL (9.1-12.4); NEUTROPHILS ABSOLUTE AUTO 4.67 K/mm3 (1.96-9.15); NEUTROPHILS PERCENT AUTO 61 % (41-73); Platelet Count 160 K/mm3 (150-400); RDW Coefficient Variation 12.5 % (11.7-14.2); RDW Standard Deviation 44.4 fL (35.1-46.3); White Blood Cell Count 7.73 K/mm3 (4.00-11.30)
[2020-04-07 04:39] LABS: Anion Gap 5 mmol/L (6-16); Blood Urea Nitrogen 18 mg/dL (8-24); Bun/Creatinine Ratio 23.2 (12.0-20.0); CO2, Blood 29 mmol/L (21-32); Calcium, Blood 8.4 mg/dL (8.5-10.1); Chloride, Blood 108 mmol/L (98-108); Creatinine, Blood 0.78 mg/dL (0.60-1.20); Glomerular Filtration Rate >60 (60-); Glucose, Blood 112 mg/dL (70-99); Potassium, Blood 4.3 mmol/L (3.5-5.5); Sodium, Blood 142 mmol/L (136-145)
--- NOTE | 2020-04-07 05:39 | NUR ---
SHIFT SUMMARY PT SLEPT T/O SHIFT. PT ALERT AND ORIENTED X 4. HR STABLE. BP STABLE. REPORTS NO CP OR PRESSURE. PT ABLE TO TURN SELF IN BED NEEDED. SLEPT T/O SHIFT. OXYGEN SATURATION MAINTAINED ABOVE 92% ON 4 L OF OXYGEN VIA NC. WILL CONTINUE OT MONITOR UNTIL REPORT GIVEN TO JEWELL ISIDRO.
--- NOTE | 2020-04-07 13:29 | NUR ---
FAMILY NOTIFIED SISTER (POA) UPDATED ON PT CONDITION. SISTER HAD QUESTIONS ABOUT MEDICATION'S AND MENTAL STATUS. PT IS A&O X4, CALM & COOPERATIVE AT THIS TIME. MORNING MEDS HAVE BEEN GIVEN. PT'S SISTER IS ON HER WAY TO VISIT.
--- NOTE | 2020-04-07 20:01 | NUR ---
SHIFT SUMMARY PT HAS DONE WELL TODAY, HE HAS BEEN ALERT, ORIENTED & COOPERATIVE W/CARE. PT WAS ABLE TO WALK IN THE HALLS X2, ONCE WITH PHYSICAL THERAPY. PT SISTERSharona WAS IN TO VISIT TODAY. POSITIVE BLOOD CX REPORTED TO BONY STERLING ORDERED & STARTED. PT IS NOW ON ROOM AIR, SPO2 >95%, VSS. BED ALARM IS ON FOR SAFETY, CALL LIGHT IN REACH. REPORT GIVEN TO PATRICIA ISIDRO.
--- NOTE | 2020-04-08 00:35 | NUR ---
04/08/20 0035 PT SLEEPING VERY WELL. VITALS TAKEN. BP DOWN BUT PT HAD SEVERAL MEDS FOR SLEEP/SEDATION AT HS. O2 SATS 94%.
--- NOTE | 2020-04-08 06:23 | NUR ---
04/08/20 0350 PT AWAKE AND REQUESTING TO VOID. VERY WEAK AND 2 STAFF NEEDED TO HELP HIM STAND AT BEDSIDE FOR VOIDING. STOOD AND VOIDED IN URINAL BUT HE HAD SLEPT HARD AND WAS INCONTINENT OF URINE ON BED. BED LINEN CHANGED AND [facility] GIVEN. SLIGHT FEVER NOTED THIS SHIFT. DENIES ANY DISCOMFORT OR S/S. TAKING ORAL INTAKE FAIR THIS SHIFT. SEE I AND O SECTION.
--- NOTE | 2020-04-09 03:12 | NUR ---
TRANSFER NOTE RECEIVED HAND OFF FROM Smith COELHO RN USING SBAR. TRANSFERED TO ROOM 230 VIA WHEELCHAIR WITH ALL PERSONAL BELONGINGS INCLUDING HIS WALKER. AMBULATED WITH SHUFFLED GAIT TO BED USING VERBAL CUES, GAIT BELT, AND 2 PERSON MAX ASSIST WITH WALKER, TOLERATED WELL. RESTING WITH EYES CLOSED IN SEMI FOWLERS, RESPONDS TO VERBAL STIMULI. ORIENTED TO ROOM, CALL SYSTEM, AND POC, VOICES UNDERSTANDING. O2 SAT NOTED 89% - 90%, PLACED ON O2 AT 2L/NC PER PRN O2 ORDER, WILL WEAN POSSIBLE. LUNG SOUNDS ARE DIM BILATERALLY, AND COARSE ON LEFT. EXP WHEEZING AUDIBLE WITHOUT AUSCULTATION. LEFT WRIST 20G PIV IS PATENT, FLUSHING WITH EASE WHILE INFUSING LR AT 125ML/HR. DENIES PAIN, DISCOMFORT, OR FURTHER NEEDS AT THIS TIME. SAFETY MEASURES IN PLACE. WILL CONTINUE TO MONITOR.
--- NOTE | 2020-04-09 03:31 | NUR ---
PT TRANSFER PT TRANSFERED TO ROOM 230 BY WHEELCHAIR. REPORT GIVEN TO SANNA HERNÁNDEZ PRIOR TO TRANSFER.
--- NOTE | 2020-04-09 06:01 | NUR ---
SHIFT SUMMARY RESTING WITH EYES CLOSED IN SEMI FOWLERS, RESPONDS TO VERBAL STIMULI. NO SIGNIFICANT CHANGES NOTED SINCE TRANSFER. O2 SAT NOTED 89% - 90%, PLACED ON O2 AT 2L/NC PER PRN O2 ORDER. LEFT WRIST 20G PIV IS PATENT, FLUSHING WITH EASE WHILE INFUSING LR AT 125ML/HR. DENIES PAIN, DISCOMFORT, OR FURTHER NEEDS AT THIS TIME. SAFETY MEASURES IN PLACE. WILL CONTINUE TO MONITOR.
[2020-04-09] MEDS ORDERED: IPRAT-ALBUT 0.5-3 ML INH ×2 (16:25)
[2020-04-09] MEDS ORDERED: SPIRIVA RESPIMAT4 G3 INH ×2 (16:27)
[2020-04-09] MEDS ORDERED: AMOCLA875 PO ×2 (16:29)
[2020-04-09] MEDS ORDERED: VISBIOME PROBIOTIC PO ×2 (16:29)
--- NOTE | 2020-04-09 18:04 | NUR ---
discharge, pt left via wheelchair with brother in law. discharge information gone over with [facility] and pt. educated pt on medications. pharmacy was faxed his scripts. pt and family denied further questions, belongings sent with pt. iv removed.
== END 2020-04-09 17:30 | disposition home or self-care (01) | DRG 871 ==
LOC: ER 07:34 → PCU 12:08 → SURS 04-09 03:01
PROVIDERS: Emergency Medicine; Nurse Practitioner Acute Care; ADMIT Internal Medicine
DX: A41.9 Sepsis, unspecified organism (principal); J69.0 Pneumonitis due to inhalation of food and vomit; J96.01 Acute respiratory failure with hypoxia; E87.2 Acidosis; Z68.34 Body mass index [BMI] 34.0-34.9, adult; J44.9 Chronic obstructive pulmonary disease, unspecified; R65.20 Severe sepsis without septic shock; F31.9 Bipolar disorder, unspecified; F43.10 Post-traumatic stress disorder, unspecified; E66.01 Morbid (severe) obesity due to excess calories; F41.1 Generalized anxiety disorder; Z87.891 Personal history of nicotine dependence; Z66 Do not resuscitate
CPT/HCPCS: 36415; 71045; 80048; 80053; 83605; 85025; 87040; 92610; 94640; 94660; 94760; 94761; 94762; 96361; 96365; 96366; 96367; 96375; 97116; 97161; 97166; 97530; 99285-25; A9270; J0456; J0696; J1650; J1940; J2405; J3370; J7030; J7050; J7120

== ENCOUNTER 2020-04-11 08:22 | Emergency (ER) | payer OTHER ==
[~2020-04-11] VITALS: Ht 185.4 cm; Wt 117.9 kg
[~2020-04-11 08:22] MED LIST changes: +AMOCLA875 PO; +BACL10 PO; +Benztropine Me0.5 MG PO; +CLONAZEPAM1 MG PO; +DEPAKOTE ER500 M1 PO; +DIVA500ER PO; +ESZO3 PO; +FISH OIL 1,2001 EAC7 PO; +IPRAT-ALBUT 0.5-3 ML INH; +LATA.005SO BOTHEYES; +LINZESS145 MCG PO; +MELATONIN1010 PO; +MIRALAX17 GM PO; +QUETIAPINE FUM PO; +RISP2 PO; +RISP4 PO; +SPIRIVA RESPIMAT4 G3 INH; +VISBIOME PROBIOTIC PO
[2020-04-11 09:00] LABS: BASOPHILS ABSOLUTE AUTO 0.03 K/mm3 (0.00-0.23); BASOPHILS PERCENT AUTO 0 % (0-2); EOSINOPHILS ABSOLUTE AUTO 0.15 K/mm3 (0.00-0.68); EOSINOPHILS PERCENT AUTO 2 % (0-6); Hemoglobin 13.8 g/dL (13.5-17.5); IMMATURE GRAN ABSOLUTE AUTO 0.14 K/mm3 (0.00-0.10); IMMATURE GRAN PERCENT AUTO 2 % (0-1); LYMPHOCYTES ABSOLUTE AUTO 1.48 K/mm3 (0.84-5.20); LYMPHOCYTES PERCENT AUTO 18 % (21-46); MONOCYTES ABSOLUTE AUTO 0.75 K/mm3 (0.16-1.47); MONOCYTES PERCENT AUTO 9 % (4-13); Mean Corpuscular HGB 30.4 pg (26.0-34.0); Mean Corpuscular HGB Conc 32.1 g/dL (31.5-36.5); Mean Corpuscular Volume 95 fL (80-100); Mean Platelet Volume 10.2 fL (9.1-12.4); NEUTROPHILS ABSOLUTE AUTO 5.52 K/mm3 (1.96-9.15); NEUTROPHILS PERCENT AUTO 68 % (41-73); Platelet Count 218 K/mm3 (150-400); RDW Coefficient Variation 12.1 % (11.7-14.2); RDW Standard Deviation 42.3 fL (35.1-46.3); Red Blood Cell Count 4.54 M/mm3 (4.30-5.90); White Blood Cell Count 8.07 K/mm3 (4.00-11.30)
[2020-04-11 09:23] LABS: Alanine Aminotransfer (ALT/SGP 74 U/L (12-78); Albumin, Blood 3.1 g/dL (3.4-5.0); Albumin/Globulin Ratio 0.8 (0.8-1.8); Alk Phos 68 U/L (50-136); Anion Gap 9 mmol/L (6-16); Aspartate Aminotrans (AST/SGOT 49 U/L (12-37); Bilirubin, Total 0.2 mg/dL (0.1-1.0); Blood Urea Nitrogen 20 mg/dL (8-24); Bun/Creatinine Ratio 25.1 (12.0-20.0); CO2, Blood 24 mmol/L (21-32); Calcium, Blood 9.4 mg/dL (8.5-10.1); Chloride, Blood 105 mmol/L (98-108); Globulin, Blood 4.1 g/dL (2.2-4.0); Glomerular Filtration Rate >60 (60-); Glucose, Blood 155 mg/dL (70-99); Potassium, Blood 4.2 mmol/L (3.5-5.5); Sodium, Blood 138 mmol/L (136-145); Total Protein, Blood 7.2 g/dL (6.4-8.2); Troponin I <0.015 ng/mL (0.000-0.040)
== END 2020-04-11 09:50 | disposition home or self-care (01) ==
LOC: ER 08:22
PROVIDERS: Emergency Medicine
DX: J40 Bronchitis, not specified as acute or chronic (principal); J44.9 Chronic obstructive pulmonary disease, unspecified; I10 Essential (primary) hypertension; Z87.891 Personal history of nicotine dependence; Z79.899 Other long term (current) drug therapy
CPT/HCPCS: 36415; 80053; 83880; 84484; 85025; 93005; 93010; 99285-25

== ENCOUNTER 2020-04-24 12:43 | Emergency (ER) | payer OTHER ==
[~2020-04-24] VITALS: Ht 185.4 cm; Wt 117.9 kg
[2020-04-24] MEDS ORDERED: ACET500 PO (13:29)
[2020-04-24] MEDS ORDERED: ABAT250V PO (13:30)
[2020-04-24 13:51] LABS: BASOPHILS ABSOLUTE AUTO 0.03 K/mm3 (0.00-0.23); BASOPHILS PERCENT AUTO 1 % (0-2); EOSINOPHILS ABSOLUTE AUTO 0.12 K/mm3 (0.00-0.68); EOSINOPHILS PERCENT AUTO 2 % (0-6); Hematocrit 43.3 % (37.0-53.0); Hemoglobin 14.2 g/dL (13.5-17.5); IMMATURE GRAN ABSOLUTE AUTO 0.09 K/mm3 (0.00-0.10); IMMATURE GRAN PERCENT AUTO 2 % (0-1); LYMPHOCYTES ABSOLUTE AUTO 2.19 K/mm3 (0.84-5.20); LYMPHOCYTES PERCENT AUTO 41 % (21-46); MONOCYTES PERCENT AUTO 8 % (4-13); Mean Corpuscular HGB 30.4 pg (26.0-34.0); Mean Corpuscular HGB Conc 32.8 g/dL (31.5-36.5); Mean Corpuscular Volume 93 fL (80-100); Mean Platelet Volume 10.6 fL (9.1-12.4); NEUTROPHILS ABSOLUTE AUTO 2.51 K/mm3 (1.96-9.15); NEUTROPHILS PERCENT AUTO 47 % (41-73); Platelet Count 234 K/mm3 (150-400); RDW Coefficient Variation 12.4 % (11.7-14.2); RDW Standard Deviation 42.1 fL (35.1-46.3); Red Blood Cell Count 4.67 M/mm3 (4.30-5.90); White Blood Cell Count 5.34 K/mm3 (4.00-11.30)
[2020-04-24 13:59] LABS: International Normalized Ratio 0.93
[2020-04-24 14:02] LABS: Alanine Aminotransfer (ALT/SGP 42 U/L (12-78); Albumin, Blood 3.3 g/dL (3.4-5.0); Albumin/Globulin Ratio 0.8 (0.8-1.8); Alk Phos 74 U/L (50-136); Anion Gap 9 mmol/L (6-16); Aspartate Aminotrans (AST/SGOT 24 U/L (12-37); Bilirubin, Total 0.3 mg/dL (0.1-1.0); Blood Urea Nitrogen 21 mg/dL (8-24); Bun/Creatinine Ratio 29.9 (12.0-20.0); CO2, Blood 25 mmol/L (21-32); Calcium, Blood 8.9 mg/dL (8.5-10.1); Chloride, Blood 105 mmol/L (98-108); Glomerular Filtration Rate >60 (60-); Glucose, Blood 165 mg/dL (70-99); Potassium, Blood 4.2 mmol/L (3.5-5.5); Sodium, Blood 139 mmol/L (136-145); Total Protein, Blood 7.3 g/dL (6.4-8.2)
[2020-04-24 14:55] LABS: Influenza A, PCR NEGATIVE (NEGATIVE); Influenza B, PCR NEGATIVE (NEGATIVE); Resp Syncytial Virus, PCR NEGATIVE (NEGATIVE); SARS-Cov-2 (COVID-19) PCR, MMC NEGATIVE (NEGATIVE)
[2020-04-24 15:16] LABS: Source, Urine Catheter
[2020-04-24 15:23] LABS: Appearance, Urine Clear (Clear); Bilirubin, Urine Neg (Neg); Blood, Urine 1+ (Neg); Color, Urine Yellow (P-Yellow); Glucose Qualitative, Urine Neg (Neg); Ketones, Urine 2+ (Neg); Leukocyte Esterase, Urine 1+ (Neg); Nitrite, Urine Neg (Neg); Protein, Urine Neg (Neg); Specific Gravity, Urine 1.025 (1.003-1.022); Urobilinogen, Urine NORM (Normal)
[2020-04-24 15:35] LABS: Bacteria Few /hpf; Calcium Oxalate Crystals Few /hpf; Red Blood Cells, Urine 0-2 /hpf (0-2); Squamous Epithelial Cells Not Seen /hpf (Few)
== END 2020-04-24 15:53 | disposition home or self-care (01) ==
LOC: ER 12:43
PROVIDERS: Physician Assistant
DX: R53.1 Weakness (principal); Z87.01 Personal history of pneumonia (recurrent); Z79.899 Other long term (current) drug therapy; Z20.822 Contact with and (suspected) exposure to COVID-19
CPT/HCPCS: 0241U; 36415; 71045; 80053; 81001; 83605; 85025; 85610; 85730; 87040; 87086; 93005; 93010; 99285-25